=== PATIENT | female | born 1970 ===

== ENCOUNTER 2016-11-25 00:04 | Emergency (ER) | payer MEDICARE, MEDICAID ==
[2016-11-25 00:28] VITALS: BP 95/51; PULSE 88; RESP 18; TEMP 98.1; O2SAT 100
--- NOTE | 2016-11-25 00:50 | ED PDOC ---
HPI: Skin/Bite Injury Time Seen by Provider: 11/25/16 00:09 Chief Complaint (Nursing): Abnormal Skin Integrity Chief Complaint (Provider): Vaccine site irritation History Per: Patient Additional Complaint(s): Pt is a 45 yo female, no PMH, presents to ED with complaints of redness, swelling and pain to her injection site. Pt received T.Dap vaccination 2 days ago. No medications taken to alleviate symptoms thus far. Past Medical History Reviewed: Nursing Documentation, Vital Signs Vital Signs: Last Vital Signs Temp 98.1 F 11/25/16 00:14 Pulse 88 11/25/16 00:14 Resp 18 11/25/16 00:14 BP 95/51 L 11/25/16 00:14 Pulse Ox 100 11/25/16 00:14 - Medical History PMH: Anxiety, Depression, Chronic Pain - Surgical History Surgical History: Cholecystectomy, - Family History Family History: States: Unknown Family Hx - Living Arrangements Living Arrangements: With Family - Social History Current smoker - smoking cessation education provided: No Alcohol: Social Drugs: Denies - Home Medications Home Medications: Ambulatory Orders Medication Instructions Recorded Naproxen [Naprosyn Tab] 1 tab PO Q8 PRN #21 tab 05/29/16 - Allergies Allergies/Adverse Reactions: Allergies Allergy/AdvReac Type Severity Reaction Status Date / Time latex Allergy RASH Verified 05/29/16 23:31 tramadol Allergy RASH Verified 11/25/16 00:14 [facility] Allergy Mild RASH Uncoded 05/29/16 23:31 Review of Systems ROS Statement: Except As Marked, All Systems Reviewed And Found Negative Skin: Positive for: Other (redness and swelling) Physical Exam - Reviewed Nursing Documentation Reviewed: Yes Vital Signs Reviewed: Yes - Physical Exam Appears: Positive for: Well, Non-toxic, No Acute Distress Head Exam: Positive for: ATRAUMATIC, NORMAL INSPECTION, NORMOCEPHALIC Skin: Positive for: Warm ((+) mild erythema, edema and tenderness to injection site ~ 5 cm in diamter.) Eye Exam: Positive for: EOMI, Normal appearance, PERRL ENT: Positive for: Normal ENT Inspection Neck: Positive for: Normal, Painless ROM Cardiovascular/Chest: Positive for: Regular Rate, Rhythm Respiratory: Positive for: CNT, Normal Breath Sounds Gastrointestinal/Abdominal: Positive for: Normal Exam, Bowel Sounds, Soft Back: Positive for: Normal Inspection Extremity: Positive for: Normal ROM Neurologic/Psych: Positive for: Alert, Oriented - ECG O2 Sat by Pulse Oximetry: 100 Medical Decision Making Medical Decision Making: Medicated with Motrin and Keflex PO Line drawn around erythema, advised to return to ED if at anytime condition worsens Disposition - Clinical Impression Clinical Impression: Cellulitis - Patient ED Disposition Is Patient to be Admitted: No - Disposition Referrals: Brandon Buckner MD [Primary Care Provider] - Disposition: Routine/Home Disposition Time: 00:52 Condition: STABLE Forms: [employer] (German) - POA Present On Arrival: None
== END 2016-11-25 01:26 | disposition home or self-care (01) ==
LOC: H.ER 00:04
DX: L03.90 Cellulitis, unspecified (principal); F32.9 Major depressive disorder, single episode, unspecified; F41.9 Anxiety disorder, unspecified; G89.29 Other chronic pain

== ENCOUNTER 2016-12-14 17:39 | Emergency (ER) | payer MEDICARE, MEDICAID ==
[2016-12-14 17:47] VITALS: BP 98/54; PULSE 87; RESP 16; TEMP 98.8; O2SAT 98
--- NOTE | 2016-12-14 18:29 | ED PDOC ---
HPI: General Adult Time Seen by Provider: 12/14/16 17:49 Chief Complaint (Nursing): Back Pain Chief Complaint (Provider): Back pain, b/l leg pain History Per: Patient History/Exam Limitations: no limitations Onset/Duration Of Symptoms: Mins Have you had recent travel within the past 21 days to any of the following countries: [place], [place], [place] or [place]?: No Current Symptoms Are (Timing): Still Present Additional History Per: Patient Additional Complaint(s): The patient is a 46yo female, presents to the ED for evaluation of bilateral leg pain and back pain after slipping and falling prior to arrival. Patient describes the fall as " a split" and states the pain is worse in her inner thighs and her back/. She denies any urine or stool incontinence, numbness or weakness. She offers no additional medical complaints. Past Medical History Reviewed: Historical Data, Nursing Documentation, Vital Signs Vital Signs: Last Vital Signs Temp 98.8 F 12/14/16 17:46 Pulse 87 12/14/16 17:46 Resp 16 12/14/16 17:46 BP 98/54 L 12/14/16 17:46 Pulse Ox 98 12/14/16 18:31 - Medical History PMH: Anxiety, Depression, Chronic Pain - Surgical History Surgical History: Cholecystectomy, - Family History Family History: States: Unknown Family Hx - Home Medications Home Medications: Ambulatory Orders Medication Instructions Recorded Naproxen [Naprosyn Tab] 1 tab PO Q8 PRN #21 tab 05/29/16 Cephalexin [cephalexin] 500 mg PO BID #14 cap 11/25/16 Ibuprofen [Motrin] 600 mg PO Q6 #20 tab 11/25/16 Cyclobenzaprine [Cyclobenzaprine 10 mg PO Q8H PRN #2 tab 12/14/16 HCl] Ibuprofen [Motrin Tab] 800 mg PO ONCE #1 tab 12/14/16 - Allergies Allergies/Adverse Reactions: Allergies Allergy/AdvReac Type Severity Reaction Status Date / Time latex Allergy RASH Verified 12/14/16 17:43 tramadol Allergy RASH Verified 12/14/16 17:43 [facility] Allergy Mild RASH Uncoded 12/14/16 17:43 Review of Systems Genitourinary Female: Negative for: Incontinence Musculoskeletal: Positive for: Back Pain, Leg Pain Neurological: Negative for: Weakness, Numbness Physical Exam - Reviewed Nursing Documentation Reviewed: Yes Vital Signs Reviewed: Yes - Physical Exam Appears: Positive for: Non-toxic, No Acute Distress Head Exam: Positive for: ATRAUMATIC, NORMAL INSPECTION, NORMOCEPHALIC Skin: Positive for: Warm, Dry Neck: Positive for: Supple Cardiovascular/Chest: Positive for: Regular Rate, Rhythm Respiratory: Negative for: Respiratory Distress Back: Positive for: Other (lumbar and paralumbar tenderness) Extremity: Positive for: Normal ROM. Negative for: Deformity, Swelling Neurologic/Psych: Positive for: Alert, Oriented. Negative for: Motor/Sensory Deficits - ECG O2 Sat by Pulse Oximetry: 98 (RA) Pulse Ox Interpretation: Normal Medical Decision Making Medical Decision Making: Time: 1805 Impression: Back and bilateral leg pain after a fall Plan: L-spine x-ray - No acute fracture or dislocation. Reassess Scribe Attestation: Documented by Samira Marcano acting as a scribe for KHLOE Kraft Provider Attestation: All medical record entries made by the Scribe were at my direction and personally dictated by me. I have reviewed the chart and agree that the record accurately reflects my personal performance of the history, physical exam, medical decision making, and the department course for this patient. I have also personally directed, reviewed, and agree with the discharge instructions and disposition. Disposition - Clinical Impression Clinical Impression: Musculoskeletal back pain - Patient ED Disposition Is Patient to be Admitted: No Counseled Patient/Family Regarding: Diagnosis, Need For Followup, Rx Given - Disposition Referrals: [facility] [Outside] Disposition: Routine/Home Disposition Time: 19:41 Condition: GOOD Prescriptions: Cyclobenzaprine [Cyclobenzaprine HCl] 10 mg PO Q8H PRN #2 tab PRN Reason: Muscle Spasm Ibuprofen [Motrin Tab] 800 mg PO ONCE #1 tab Instructions: Acute Low Back Pain (ED) Forms: [employer] (Indonesian)
--- NOTE | 2016-12-15 11:01 | RAD ---
PROCEDURE: Radiographs of the Lumbar Spine. HISTORY: back pain s/p slip and fall COMPARISON: No prior. FINDINGS: BONES: There is normal alignment of the lumbar vertebral bodies. Lumbar lordosis is maintained. Vertebral bodies are normal in height. Bone mineralization is normal. There is no acute fracture, spondylolysis or spondylolisthesis. DISC SPACES: There is mild multilevel degenerative disc disease in the lower lumbar spine with anterior spurring, mild reduced disc heights and multilevel facet arthropathy, worse at L5-S1. OTHER FINDINGS: There are no pathologic soft tissue calcifications. IMPRESSION: No acute fracture, spondylolysis or spondylolisthesis.
== END 2016-12-14 19:59 | disposition home or self-care (01) ==
LOC: H.ER 17:39
DX: M54.9 Dorsalgia, unspecified (principal); W01.0XXA Fall on same level from slipping, tripping and stumbling without subsequent striking against object, initial encounter; Y92.89 Other specified places as the place of occurrence of the external cause; F32.9 Major depressive disorder, single episode, unspecified; F41.9 Anxiety disorder, unspecified; G89.29 Other chronic pain

== ENCOUNTER 2017-04-19 14:23 | Emergency (ER) | payer MEDICARE, MEDICAID ==
[2017-04-19 14:29] VITALS: BP 134/75; PULSE 87; RESP 16; O2SAT 100
--- NOTE | 2017-04-19 16:30 | ED PDOC ---
HPI: CCC, URI, Sore Throat Time Seen by Provider: 04/19/17 16:15 Chief Complaint (Nursing): ENT Problem Chief Complaint (Provider): Flu-like symptoms, left knee pain History Per: Patient History/Exam Limitations: no limitations Onset/Duration Of Symptoms: Days (x4) Current Symptoms Are (Timing): Still Present Additional Complaint(s): Savannah Denise is a 46-year-old female who presents to the Emergency Department complaining of 4 days of body aches, cough, fever, and chills. She has not tried any [id number] medications for symptom relief. Patient also has right knee for "a while" and would like to be evaluated as well. She denies fall or trauma. PMD: None Past Medical History Reviewed: Historical Data, Nursing Documentation, Vital Signs Vital Signs: Last Vital Signs Temp 98.2 F 04/19/17 14:27 Pulse 87 04/19/17 14:27 Resp 16 04/19/17 14:27 BP 134/75 04/19/17 14:27 Pulse Ox 100 04/19/17 18:56 - Medical History PMH: Anxiety, Depression, Chronic Pain - Surgical History Surgical History: Cholecystectomy, Other surgeries: Gastric bypass surgery, Left ankle surgery - Family History Family History: States: No Known Family Hx - Living Arrangements Living Arrangements: With Family - Social History Current smoker - smoking cessation education provided: Yes Alcohol: None Drugs: Denies - Home Medications Home Medications: Ambulatory Orders Medication Instructions Recorded Naproxen [Naprosyn Tab] 1 tab PO Q8 PRN #21 tab 05/29/16 Cephalexin [cephalexin] 500 mg PO BID #14 cap 11/25/16 Ibuprofen [Motrin] 600 mg PO Q6 #20 tab 11/25/16 Cyclobenzaprine [Cyclobenzaprine 10 mg PO Q8H PRN #2 tab 12/14/16 HCl] Ibuprofen [Motrin Tab] 800 mg PO ONCE #1 tab 12/14/16 Albuterol HFA [Ventolin HFA 90 1 puff IH ASDIR #1 unit 04/19/17 mcg/actuation (8 g)] Azithromycin [Zithromax] 250 mg PO DAILY #6 tab 04/19/17 Benzonatate 200 mg PO TID PRN #20 capsule 04/19/17 Naproxen [Naprosyn] 500 mg PO BID #20 tab 04/19/17 - Allergies Allergies/Adverse Reactions: Allergies Allergy/AdvReac Type Severity Reaction Status Date / Time latex Allergy RASH Verified 12/14/16 17:43 tramadol Allergy RASH Verified 12/14/16 17:43 [facility] Allergy Mild RASH Uncoded 12/14/16 17:43 Review of Systems ROS Statement: Except As Marked, All Systems Reviewed And Found Negative Constitutional: Positive for: Fever, Chills, Other (Body aches) ENT: Negative for: Throat Pain Respiratory: Positive for: Cough Gastrointestinal: Negative for: Vomiting, Diarrhea Musculoskeletal: Positive for: Leg Pain (right knee pain) Physical Exam - Reviewed Nursing Documentation Reviewed: Yes Vital Signs Reviewed: Yes - Physical Exam Appears: Positive for: Well, Non-toxic, No Acute Distress Head Exam: Positive for: ATRAUMATIC, NORMAL INSPECTION, NORMOCEPHALIC Skin: Positive for: Normal Color Eye Exam: Positive for: Normal appearance ENT: Positive for: Normal ENT Inspection, TM Is/Are (normal bilaterally). Negative for: Pharyngeal Erythema, Tonsillar Exudate Neck: Positive for: Normal, Painless ROM Cardiovascular/Chest: Positive for: Regular Rate, Rhythm. Negative for: Murmur Respiratory: Positive for: Normal Breath Sounds. Negative for: Accessory Muscle Use, Wheezing, Respiratory Distress Extremity: Positive for: Other (mild tednerness right knee with full rom, no warmth or erythema noted) Neurologic/Psych: Positive for: Alert, Oriented - Laboratory Results Urine POC: Negative - ECG O2 Sat by Pulse Oximetry: 100 (RA) Pulse Ox Interpretation: Normal - Other Rad chest x-ray X-Ray: Viewed By Me, Read By Radiologist X-Ray Interpretation: No active disease. x-ray right knee X-Ray: Viewed By Me, Read By Radiologist X-Ray Interpretation: Medial osteoarthritis. No acute fracture. Medical Decision Making Medical Decision Making: Initial Impression: 46-year-old female with flu-like symptoms Time: 15:12 Plan: Flu swab Urine Chest x-ray X-Ray Right Knee Motrin 600mg PO Negative flu and strep. Patient is aware of x-ray results, all questions answered. Patient feels better after pain meds given. Prescriptions provided for Naprosyn, Zithromax, Tessalon Perles and Ventolin inhaler. Patient was instructed to follow up with primary doctor in 2-3 days. Scribe Attestation: Documented by Jen Youssef, acting as a scribe for Kamilla Rajput PA-C Provider Scribe Attestation: All medical record entries made by the Scribe were at my direction and personally dictated by me. I have reviewed the chart and agree that the record accurately reflects my personal performance of the history, physical exam, medical decision making, and the department course for this patient. I have also personally directed, reviewed, and agree with the discharge instructions and disposition. Procedures - Splinting Location: left knee Pre-Made Type: knee immobilizer Pre-Proc Neuro Vasc Exam: normal Post-Proc Neuro Vasc Exam: normal Disposition - Clinical Impression Clinical Impression: Bronchitis, Arthritis of knee - Patient ED Disposition Is Patient to be Admitted: No Counseled Patient/Family Regarding: Studies Performed, Diagnosis, Need For Followup, Rx Given - Disposition Referrals: [facility] [Outside] Disposition: Routine/Home Disposition Time: 18:54 Condition: STABLE Additional Instructions: Take prescription meds as directed. Follow-up in one to 2 days with primary care doctor. Prescriptions: Albuterol HFA [Ventolin HFA 90 mcg/actuation (8 g)] 1 puff IH ASDIR #1 unit Azithromycin [Zithromax] 250 mg PO DAILY #6 tab Benzonatate 200 mg PO TID PRN #20 capsule PRN Reason: Cough Naproxen [Naprosyn] 500 mg PO BID #20 tab Instructions: Acute Bronchitis (ED), Knee Pain (ED) Forms: [employer] (Slovak)
--- NOTE | 2017-04-19 18:32 | RAD ---
PROCEDURE: Right Knee Radiographs. HISTORY: trauma COMPARISON: None. FINDINGS: BONES: No acute fracture. Probable ununited secondary ossification center adjacent to inferior pole of patella. JOINTS: Narrowing of the medial joint compartment with marginal osteophytes, consistent with osteoarthritis. No articular erosion. Lateral and patellofemoral compartments are grossly preserved. JOINT EFFUSION: None. OTHER FINDINGS: None. IMPRESSION: Medial osteoarthritis. No acute fracture.
--- NOTE | 2017-04-19 18:33 | RAD ---
HISTORY: cough COMPARISON: 02/29/2016 TECHNIQUE: Chest PA and lateral FINDINGS: LUNGS: No active pulmonary disease. PLEURA: No significant pleural effusion identified. No pneumothorax apparent. CARDIOVASCULAR: Normal. OSSEOUS STRUCTURES: No significant abnormalities. VISUALIZED UPPER ABDOMEN: Normal. OTHER FINDINGS: None. IMPRESSION: No active disease.
[2017-04-19 19:08] VITALS: TEMP 98.8
== END 2017-04-19 19:08 | disposition home or self-care (01) ==
LOC: H.ER 14:23
DX: J40 Bronchitis, not specified as acute or chronic (principal); M17.11 Unilateral primary osteoarthritis, right knee; F32.9 Major depressive disorder, single episode, unspecified; F41.9 Anxiety disorder, unspecified; G89.29 Other chronic pain

== ENCOUNTER 2017-05-05 13:06 | Emergency (ER) | payer MEDICARE, MEDICAID ==
[2017-05-05 13:31] VITALS: BP 116/77; PULSE 87; RESP 16; TEMP 97.8; O2SAT 99
--- NOTE | 2017-05-05 14:33 | ED PDOC ---
HPI: General Adult Time Seen by Provider: 05/05/17 13:47 Chief Complaint (Nursing): Upper Extremity Problem/Injury Chief Complaint (Provider): Upper Extremity Problem/Injury History Per: Patient History/Exam Limitations: no limitations Current Symptoms Are (Timing): Still Present Additional Complaint(s): 46 year old female who presents to the emergency department for an evaluation of left middle finger laceration sustained on 03/21/[address] [facility]. Patient stated she removed all 10 stitches on her own on 04/08/17 and treated with injectable antibiotics in follow-up ED visit during [facility]. stay. She also reported 9 months duration of atraumatic right knee pain and bilateral ear pain after swimming this past weekend. Patient denied any fever, chills, headache, cough, shortness of breath, calf tenderness, ear discharge or hearing changes. PMD: none provided Past Medical History Reviewed: Historical Data, Nursing Documentation, Vital Signs Vital Signs: Last Vital Signs Temp 97.8 F 05/05/17 13:28 Pulse 87 05/05/17 13:28 Resp 16 05/05/17 13:28 BP 116/77 05/05/17 13:28 Pulse Ox 99 05/05/17 15:44 - Medical History PMH: Anxiety, Depression, Chronic Pain - Surgical History Surgical History: Cholecystectomy, - Family History Family History: States: Unknown Family Hx - Social History Current smoker - smoking cessation education provided: No Alcohol: None Drugs: Denies - Home Medications Home Medications: Ambulatory Orders Medication Instructions Recorded Naproxen [Naprosyn Tab] 1 tab PO Q8 PRN #21 tab 05/29/16 Cephalexin [cephalexin] 500 mg PO BID #14 cap 11/25/16 Ibuprofen [Motrin] 600 mg PO Q6 #20 tab 11/25/16 Cyclobenzaprine [Cyclobenzaprine 10 mg PO Q8H PRN #2 tab 12/14/16 HCl] Ibuprofen [Motrin Tab] 800 mg PO ONCE #1 tab 12/14/16 Albuterol HFA [Ventolin HFA 90 1 puff IH ASDIR #1 unit 04/19/17 mcg/actuation (8 g)] Azithromycin [Zithromax] 250 mg PO DAILY #6 tab 04/19/17 Benzonatate 200 mg PO TID PRN #20 capsule 04/19/17 Naproxen [Naprosyn] 500 mg PO BID #20 tab 04/19/17 Amoxicillin [Amoxil 500 mg Cap] 500 mg PO TID #30 cap 05/05/17 Meloxicam [Mobic] 7.5 mg PO DAILY PRN #14 tab 05/05/17 Ofloxacin Otic 0.3% [Floxin 0.3% 10 drop DAILY #1 bottle 05/05/17 Otic Soln] - Allergies Allergies/Adverse Reactions: Allergies Allergy/AdvReac Type Severity Reaction Status Date / Time latex Allergy RASH Verified 12/14/16 17:43 tramadol Allergy RASH Verified 12/14/16 17:43 [facility] Allergy Mild RASH Uncoded 12/14/16 17:43 Review of Systems ROS Statement: Except As Marked, All Systems Reviewed And Found Negative Constitutional: Negative for: Fever, Chills ENT: Positive for: Ear Pain (bilateral). Negative for: Ear Discharge, Other ( hearing changes) Respiratory: Negative for: Cough, Shortness of Breath Musculoskeletal: Positive for: Hand Pain (left middle finger laceration), Leg Pain (atraumatic right knee pain). Negative for: Other (bialteral calf pain) Neurological: Negative for: Headache Physical Exam - Reviewed Nursing Documentation Reviewed: Yes Vital Signs Reviewed: Yes - Physical Exam Appears: Positive for: Non-toxic, No Acute Distress Eye Exam: Positive for: Normal appearance, EOMI, PERRL. Negative for: Nystagmus , Periorbital swelling, Periorbital tenderness ENT: Positive for: TM Is/Are (within normal limits to left TM and right ear canal), Other (Right erythematous and bulging TM; left erythematous and mild edematous ear canal) Respiratory: Positive for: Normal Breath Sounds. Negative for: Decreased Breath Sounds, Respiratory Distress Pulses-Post. Tibialis (R): 2+ Pulses-Radial (L): 2+ Extremity: Positive for: Tenderness (medial surface of right knee with active ROM), Swelling (minimally to right knee on medial surface), Other (healing suture wound with edema noted to left 3rd upper digit and limited ROM secondary to pain). Negative for: Normal ROM, Deformity (erythema or fluctuance to left 3rd upper digit) Neurologic/Psych: Positive for: Alert, Oriented - ECG O2 Sat by Pulse Oximetry: 99 (RA) Pulse Ox Interpretation: Normal Medical Decision Making Medical Decision Making: Initial Impression: Knee pain; Ear pain; Finger laceration Initial Plan: * Xray knee (right) * Xray hand (left) ____ Time: 1422 --Case discussed with Marcos Anthony APN. --Requested Dr. May for surgery consult. ___ Time: 1528 --Xray knee (right) FINDINGS: BONES: No acute fracture. Well corticated ossific density at the lower pole of patella redemonstrated. JOINTS: Tricompartmental narrowing with mild degenerative spurring. JOINT EFFUSION: None. OTHER FINDINGS: None. IMPRESSION: No demonstrated fracture or dislocation. Degenerative changes. --Xray hand (left) FINDINGS: LEFT MIDDLE FINGER: Left middle finger normal, without fracture of focal lesion. Remainder of the left hand (as seen on the AP view) is grossly unremarkable. JOINTS: Normal. SOFT TISSUES: Normal. OTHER FINDINGS: None. IMPRESSION: Normal left middle finger radiographs. Scribe Attestation: Documented by Marianna Vela, acting as a scribe for Yaniv Watters PA-C. Provider Scribe Attestation: All medical record entries made by the Scribe were at my direction and personally dictated by me. I have reviewed the chart and agree that the record accurately reflects my personal performance of the history, physical exam, medical decision making, and the department course for this patient. I have also personally directed, reviewed, and agree with the discharge instructions and disposition. Disposition - Clinical Impression Clinical Impression: Otitis media, Otitis externa, Right knee pain, Finger pain - Patient ED Disposition Is Patient to be Admitted: No - Disposition Referrals: Lexy Cheney MD [Staff Provider] - Disposition: Routine/Home Disposition Time: 15:30 Condition: STABLE Prescriptions: Amoxicillin [Amoxil 500 mg Cap] 500 mg PO TID #30 cap Meloxicam [Mobic] 7.5 mg PO DAILY PRN #14 tab PRN Reason: Pain, Mild (1-3) Ofloxacin Otic 0.3% [Floxin 0.3% Otic Soln] 10 drop DAILY #1 bottle Instructions: Otitis Externa (ED), Otitis Media (ED), Knee Pain (ED), Arthralgia (ED) Forms: [employer] (Faroese) Print Language: MAORI
[2017-05-05] MEDS ORDERED: Naproxen 500 MG TAB PO ONE (15:15)
--- NOTE | 2017-05-05 15:33 | RAD ---
PROCEDURE: Left middle finger radiographs. HISTORY: trauma COMPARISON: None. TECHNIQUE: AP radiograph of the left hand, as well as spot oblique and lateral images of left middle finger were obtained. FINDINGS: LEFT MIDDLE FINGER: Left middle finger normal, without fracture of focal lesion. Remainder of the left hand (as seen on the AP view) is grossly unremarkable. JOINTS: Normal. SOFT TISSUES: Normal. OTHER FINDINGS: None. IMPRESSION: Normal left middle finger radiographs.
--- NOTE | 2017-05-05 15:34 | RAD ---
PROCEDURE: Right Knee Radiographs. HISTORY: pain COMPARISON: Right knee radiographs dated 04/19/2017. FINDINGS: BONES: No acute fracture. Well corticated ossific density at the lower pole of patella redemonstrated. JOINTS: Tricompartmental narrowing with mild degenerative spurring. JOINT EFFUSION: None. OTHER FINDINGS: None. IMPRESSION: No demonstrated fracture or dislocation. Degenerative changes.
== END 2017-05-05 16:07 | disposition home or self-care (01) ==
LOC: H.ER 13:06
DX: S61.213A Laceration without foreign body of left middle finger without damage to nail, initial encounter (principal); W26.8XXA Contact with other sharp object(s), not elsewhere classified, initial encounter; Y92.89 Other specified places as the place of occurrence of the external cause; M25.561 Pain in right knee; F32.9 Major depressive disorder, single episode, unspecified; F41.9 Anxiety disorder, unspecified; G89.29 Other chronic pain

== ENCOUNTER 2017-09-20 23:39 | Emergency (ER) | payer MEDICARE, MEDICAID ==
[2017-09-20 23:56] VITALS: BP 119/71; PULSE 81; RESP 17; TEMP 99; O2SAT 98
[2017-09-21 00:44] LABS: HEMOGLOBIN 8.7 g/dL (12.0-16.0); MEAN CELL VOLUME 66.7 fl (81.0-99.0); MEAN CORPUSCULAR HEMOGLOBIN 20.8 pg (27.0-31.0); MEAN CORPUSCULAR HGB CONC 31.1 g/dL (33.0-37.0); RBC 4.2 Mil/uL (3.80-5.20); RED CELL DISTRIBUTION WIDTH 21.9 % (11.5-14.5); WHITE BLOOD COUNT 10.4 K/uL (4.8-10.8)
[2017-09-21 00:52] LABS: BLOOD UREA NITROGEN 13 mg/dl (7-17); CALCIUM 8.5 mg/dL (8.4-10.2); GFR AFRICAN-AMERICAN > 60; GFR NON-AFRICAN AMERICAN > 60
--- NOTE | 2017-09-21 01:08 | ED PDOC ---
HPI: Chest Pain Time Seen by Provider: 09/20/17 23:52 Chief Complaint (Nursing): Chest Pain Chief Complaint (Provider): Chest Pain History Per: Patient History/Exam Limitations: no limitations Onset/Duration Of Symptoms: Mins (prior to arrival) Current Symptoms Are (Timing): Better Additional Complaint(s): 46 year old female with history of chronic back pain, anxiety, and depression presents with resolved palpitations via EMS. Patient states she woke up feeling very nervous and felt her heart pounding, so she took .5 mg of Xanax, which relieved her symptoms. Currently, she denies palpitations, chest pain, shortness of breath, or sweats. PMD: none provided Past Medical History Reviewed: Historical Data, Nursing Documentation, Vital Signs Vital Signs: Last Vital Signs Temp 99.0 F 09/20/17 23:46 Pulse 81 09/20/17 23:46 Resp 17 09/20/17 23:46 BP 119/71 09/20/17 23:46 Pulse Ox 98 09/21/17 01:13 - Medical History PMH: Anxiety, Depression, Chronic Pain - Surgical History Surgical History: Cholecystectomy, - Family History Family History: States: Unknown Family Hx - Social History Current smoker - smoking cessation education provided: Yes Alcohol: None Drugs: Denies - Home Medications Home Medications: Ambulatory Orders Medication Instructions Recorded Naproxen [Naprosyn Tab] 1 tab PO Q8 PRN #21 tab 05/29/16 Cephalexin [cephalexin] 500 mg PO BID #14 cap 11/25/16 Ibuprofen [Motrin] 600 mg PO Q6 #20 tab 11/25/16 Cyclobenzaprine [Cyclobenzaprine 10 mg PO Q8H PRN #2 tab 12/14/16 HCl] Ibuprofen [Motrin Tab] 800 mg PO ONCE #1 tab 12/14/16 Albuterol HFA [Ventolin HFA 90 1 puff IH ASDIR #1 unit 04/19/17 mcg/actuation (8 g)] Azithromycin [Zithromax] 250 mg PO DAILY #6 tab 04/19/17 Benzonatate 200 mg PO TID PRN #20 capsule 04/19/17 Naproxen [Naprosyn] 500 mg PO BID #20 tab 04/19/17 Amoxicillin [Amoxil 500 mg Cap] 500 mg PO TID #30 cap 05/05/17 Meloxicam [Mobic] 7.5 mg PO DAILY PRN #14 tab 05/05/17 Ofloxacin Otic 0.3% [Floxin 0.3% 10 drop DAILY #1 bottle 05/05/17 Otic Soln] - Allergies Allergies/Adverse Reactions: Allergies Allergy/AdvReac Type Severity Reaction Status Date / Time latex Allergy RASH Verified 12/14/16 17:43 tramadol Allergy RASH Verified 12/14/16 17:43 YUCA Allergy Mild RASH Uncoded 12/14/16 17:43 Review of Systems ROS Statement: Except As Marked, All Systems Reviewed And Found Negative Constitutional: Negative for: Sweats Cardiovascular: Positive for: Palpitations (but resolved now). Negative for: Chest Pain Respiratory: Negative for: Shortness of Breath Psych: Positive for: Anxiety Physical Exam - Reviewed Nursing Documentation Reviewed: Yes Vital Signs Reviewed: Yes - Physical Exam Appears: Positive for: Well, Non-toxic, No Acute Distress Head Exam: Positive for: ATRAUMATIC, NORMOCEPHALIC Skin: Positive for: Normal Color, Warm, Dry Eye Exam: Positive for: Normal appearance, EOMI, PERRL ENT: Positive for: Normal ENT Inspection Neck: Positive for: Normal, Painless ROM, Supple Cardiovascular/Chest: Positive for: Regular Rate, Rhythm. Negative for: Murmur Respiratory: Positive for: Normal Breath Sounds. Negative for: Accessory Muscle Use, Respiratory Distress Gastrointestinal/Abdominal: Positive for: Normal Exam, Soft. Negative for: Tenderness Back: Positive for: Normal Inspection. Negative for: L CVA Tenderness, R CVA Tenderness, Vertebral Tenderness Extremity: Positive for: Normal ROM. Negative for: Pedal Edema, Calf Tenderness Neurologic/Psych: Positive for: Alert, Oriented (x3). Negative for: Motor/ Sensory Deficits - Laboratory Results Result Diagrams: 09/21/17 00:32 09/21/17 00:32 - ECG O2 Sat by Pulse Oximetry: 98 (RA) Pulse Ox Interpretation: Normal Medical Decision Making Medical Decision Making: A/P Patient with history of anxiety and depression presenting with resolved palpitations -currently well appearing with normal vital signs and normal EKG -relates multiple social stressors recently to her anxiety -will get one troponin to risk stratify patient, and if normal, will d/c to follow up with PMD Scribe Attestation: Documented by Екатерина Dominguez, acting as a scribe for Alo Ortega MD. Provider Scribe Attestation: All medical entries made by the Scribe were at my direction and personally dictated by me. I have reviewed the chart and agree that the record accurately reflects my personal performance of the history, physical exam, medical decision making, and the department course for this patient. I have also personally directed, reviewed, and agree with the discharge instructions and disposition. Disposition - Clinical Impression Clinical Impression: Palpitations - Disposition Referrals: Christiano Velasquez MD [Medical Doctor] - Disposition Time: 01:30 Condition: STABLE Instructions: Palpitations Forms: [employer] (Swedish)
== END 2017-09-21 01:54 | disposition home or self-care (01) ==
LOC: H.ER 23:39
DX: R00.2 Palpitations (principal); F32.9 Major depressive disorder, single episode, unspecified; F41.9 Anxiety disorder, unspecified; G89.29 Other chronic pain; F17.200 Nicotine dependence, unspecified, uncomplicated

== ENCOUNTER 2017-10-13 00:19 | Emergency (ER) | payer MEDICAID, MEDICARE ==
[2017-10-13 02:09] LABS: BASO # 0.1 K/uL (0.0-0.2); BASO % 0.9 % (0.0-2.0); EOS # 0.2 K/uL (0.0-0.7); HEMOGLOBIN 8.4 g/dL (12.0-16.0); LYMPH # 4.1 K/uL (1.0-4.3); LYMPH % 35.6 % (20.0-40.0); MEAN CELL VOLUME 67.3 fl (81.0-99.0); MEAN CORPUSCULAR HEMOGLOBIN 20.1 pg (27.0-31.0); MEAN CORPUSCULAR HGB CONC 29.9 g/dL (33.0-37.0); MEAN PLATELET VOLUME 7.4 fl (7.2-11.7); MONO # 0.5 K/uL (0.0-0.8); MONO % 4.5 % (0.0-10.0); NEUT # 6.5 K/uL (1.8-7.0); RBC 4.18 Mil/uL (3.80-5.20); RED CELL DISTRIBUTION WIDTH 22.4 % (11.5-14.5); WHITE BLOOD COUNT 11.4 K/uL (4.8-10.8)
[2017-10-13 02:16] LABS: ALBUMIN 3.6 g/dL (3.5-5.0); ALT/SGPT 26 U/L (9-52); AST/SGOT 25 U/L (14-36); BLOOD UREA NITROGEN 13 mg/dl (7-17); CALCIUM 8.8 mg/dL (8.4-10.2); GFR AFRICAN-AMERICAN > 60; GFR NON-AFRICAN AMERICAN > 60
[2017-10-13 02:23] LABS: PARTIAL THROMBOPLASTIN TIME 27.7 Seconds (25.6-37.1); PROTHROMBIN TIME 10.7 Seconds (9.8-13.1)
--- NOTE | 2017-10-13 02:49 | ED PDOC ---
Lower Extremity Pain/Injury Chief Complaint (Provider): Right LE Problem History Per: Patient History/Exam Limitations: no limitations Onset/Duration Of Symptoms: Days (x1) Current Symptoms Are (Timing): Still Present Additional Complaint(s): 46 year old female presents to the ED for evaluation of right leg pain. Patient states she woke up yesterday morning and noticed a lump to her right calf, which throughout the days became increasingly painful, especially when walking, but did not take any medications prior to arrival. She notes the area feels hot , and is tender to touch. Otherwise, (-) trauma, (-) falls, (-) recent insect bites, (-) cough, (-) shortness of breath, (-) chest pain, (-) control use , (-) prolonged immobility, (-) fever, (-) chills. LNMP: 10/07/17 PMD: Dr. Sandoval <Maureen Ramirez - Last Filed: 10/13/17 05:46> <Alo Ortega - Last Filed: 10/13/17 06:26> Time Seen by Provider: 10/13/17 00:49 Chief Complaint (Nursing): Lower Extremity Problem/Injury Past Medical History Reviewed: Historical Data, Nursing Documentation, Vital Signs Vital Signs: Last Vital Signs Temp 97.8 F 10/13/17 00:33 Pulse 87 10/13/17 00:33 Resp 17 10/13/17 00:33 BP 130/75 10/13/17 00:33 Pulse Ox 99 10/13/17 00:33 - Medical History PMH: Anxiety, Depression, Chronic Pain - Surgical History Surgical History: Cholecystectomy, - Family History Family History: States: Unknown Family Hx - Social History Current smoker - smoking cessation education provided: Yes (light) Alcohol: None Drugs: Denies <Maureen Ramirez - Last Filed: 10/13/17 05:46> Vital Signs: Last Vital Signs Temp 97.8 F 10/13/17 00:33 Pulse 87 10/13/17 00:33 Resp 17 10/13/17 00:33 BP 130/75 10/13/17 00:33 Pulse Ox 99 10/13/17 05:49 <Alo Ortega - Last Filed: 10/13/17 06:26> - Home Medications Home Medications: Ambulatory Orders Medication Instructions Recorded Naproxen [Naprosyn Tab] 1 tab PO Q8 PRN #21 tab 05/29/16 Cephalexin [cephalexin] 500 mg PO BID #14 cap 11/25/16 Ibuprofen [Motrin] 600 mg PO Q6 #20 tab 11/25/16 Cyclobenzaprine [Cyclobenzaprine 10 mg PO Q8H PRN #2 tab 12/14/16 HCl] Ibuprofen [Motrin Tab] 800 mg PO ONCE #1 tab 12/14/16 Albuterol HFA [Ventolin HFA 90 1 puff IH ASDIR #1 unit 04/19/17 mcg/actuation (8 g)] Azithromycin [Zithromax] 250 mg PO DAILY #6 tab 04/19/17 Benzonatate 200 mg PO TID PRN #20 capsule 04/19/17 Naproxen [Naprosyn] 500 mg PO BID #20 tab 04/19/17 Amoxicillin [Amoxil 500 mg Cap] 500 mg PO TID #30 cap 05/05/17 Meloxicam [Mobic] 7.5 mg PO DAILY PRN #14 tab 05/05/17 Ofloxacin Otic 0.3% [Floxin 0.3% 10 drop DAILY #1 bottle 05/05/17 Otic Soln] - Allergies Allergies/Adverse Reactions: Allergies Allergy/AdvReac Type Severity Reaction Status Date / Time latex Allergy RASH Verified 12/14/16 17:43 tramadol Allergy RASH Verified 12/14/16 17:43 YUCA Allergy Mild RASH Uncoded 12/14/16 17:43 Review of Systems ROS Statement: Except As Marked, All Systems Reviewed And Found Negative Constitutional: Negative for: Fever, Chills, Other (trauma / falls) Cardiovascular: Negative for: Chest Pain Respiratory: Negative for: Cough, Shortness of Breath Musculoskeletal: Positive for: Other (painful, hot lump to right calf) <Maureen Ramirez - Last Filed: 10/13/17 05:46> Physical Exam - Reviewed Nursing Documentation Reviewed: Yes Vital Signs Reviewed: Yes - Physical Exam Comments: GENERAL APPEARANCE: Patient is awake, alert, oriented x 3, in no acute distress. Resting comfortably. SKIN: Warm, dry; (-) cyanosis. RIGHT LOWER EXTREMITY: (+) 3cm x 3cm area of warmth, faint erythema, and tenderness to mid posterior medial right calf. Sensation intact. Distal pulses present. Remainder of LE: full ROM, (-) tenderness. HEART AND CARDIOVASCULAR: (-) irregularity; (-) murmur, (-) gallop. CHEST AND RESPIRATORY: (-) rales, (-) rhonchi, (-) wheezes; breath sounds equal. NEURO AND PSYCH: Mental status as above. <Maureen Ramirez - Last Filed: 10/13/17 05:46> - Laboratory Results Result Diagrams: 10/13/17 02:05 10/13/17 02:05 Urine POC: Negative - ECG O2 Sat by Pulse Oximetry: 99 (RA) Pulse Ox Interpretation: Normal <Maureen Ramirez - Last Filed: 10/13/17 05:46> - Laboratory Results Result Diagrams: 10/13/17 02:05 10/13/17 02:05 <Alo Ortega - Last Filed: 10/13/17 06:26> Medical Decision Making Medical Decision Making: Time: 01:40 Initial Impression: calf pain, consider cellulitis vs DVT Initial Plan: --CMP -- test --CBC with differential --D Dimer --PT/ PTT --Toradol 30 mg IVP 0255 Labs reviewed, D-dimer elevated at 638. U/S lower extremity ordered for further evaluation of possible DVT. Patient agreeable to stay in ED until 7am when ultrasound is available. 0500 Patient resting comfortably. No additional complaints at present. 0600 Continuation of care per Dr Ortega. Patient pending U/S evaluation. Scribe Attestation: Documented by Екатерина Dominguez, acting as a scribe for Maureen Ramirez PA-C. Provider Scribe Attestation: All medical record entries made by the Scribe were at my direction and personally dictated by me. I have reviewed the chart and agree that the record accurately reflects my personal performance of the history, physical exam, medical decision making, and the department course for this patient. I have also personally directed, reviewed, and agree with the discharge instructions and disposition. <Helena Ramirezbechina Haynes - Last Filed: 10/13/17 05:46> Medical Decision Makin Patient endorsed to Dr. Reardon pending U/S <Alo Ortega - Last Filed: 10/13/17 06:26> Disposition <Maureen Ramirez Ivy - Last Filed: 10/13/17 05:46> - Patient ED Disposition Is Patient to be Admitted: No - Disposition Disposition: Transfer of Care Disposition Time: 07:00 Patient Signed Over To: Ramya Reardon Handoff Comments: pending ultrasound <Alo Ortega - Last Filed: 10/13/17 06:26> - Clinical Impression Clinical Impression: Leg pain - Disposition Condition: STABLE Forms: [employer] (Libyan) Results - Lab Results Lab Results: 10/13/17 10/13/17 10/13/17 02:05 02:05 02:05 WBC 11.4 H RBC 4.18 Hgb 8.4 L Hct 28.1 L MCV 67.3 L MCH 20.1 L MCHC 29.9 L RDW 22.4 H Plt Count 445 H MPV 7.4 Neut % (Auto) 57.0 Lymph % (Auto) 35.6 [place] % (Auto) 4.5 Eos % (Auto) 2.0 Baso % (Auto) 0.9 Neut # (Auto) 6.5 Lymph # (Auto) 4.1 [place] # (Auto) 0.5 Eos # (Auto) 0.2 Baso # (Auto) 0.1 PT 10.7 INR 1.0 APTT 27.7 D-Dimer, Quantitative 638 H Sodium 140 Potassium 3.5 L Chloride 107 Carbon Dioxide 24 Anion Gap 13 BUN 13 Creatinine 0.7 Est GFR ( Amer) > 60 Est GFR (Non-Af Amer) > 60 Random Glucose 117 H Calcium 8.8 Total Bilirubin 0.3 AST 25 ALT 26 Alkaline Phosphatase 105 Total Protein 7.2 Albumin 3.6 Globulin 3.6 Albumin/Globulin Ratio 1.0 <Maureen Ramirez - Last Filed: 10/13/17 05:46> - Lab Results Lab Results: 10/13/17 10/13/17 10/13/17 02:05 02:05 02:05 WBC 11.4 H RBC 4.18 Hgb 8.4 L Hct 28.1 L MCV 67.3 L MCH 20.1 L MCHC 29.9 L RDW 22.4 H Plt Count 445 H MPV 7.4 Neut % (Auto) 57.0 Lymph % (Auto) 35.6 [place] % (Auto) 4.5 Eos % (Auto) 2.0 Baso % (Auto) 0.9 Neut # (Auto) 6.5 Lymph # (Auto) 4.1 [place] # (Auto) 0.5 Eos # (Auto) 0.2 Baso # (Auto) 0.1 PT 10.7 INR 1.0 APTT 27.7 D-Dimer, Quantitative 638 H Sodium 140 Potassium 3.5 L Chloride 107 Carbon Dioxide 24 Anion Gap 13 BUN 13 Creatinine 0.7 Est GFR ( Amer) > 60 Est GFR (Non-Af Amer) > 60 Random Glucose 117 H Calcium 8.8 Total Bilirubin 0.3 AST 25 ALT 26 Alkaline Phosphatase 105 Total Protein 7.2 Albumin 3.6 Globulin 3.6 Albumin/Globulin Ratio 1.0 <Alo Ortega - Last Filed: 10/13/17 06:26>
--- NOTE | 2017-10-13 07:19 | ED PDOC ---
- Laboratory Results Result Diagrams: 10/13/17 02:05 10/13/17 02:05 Urine POC: Negative - ECG O2 Sat by Pulse Oximetry: 97 Medical Decision Making Medical Decision Making: patient endorsed to me by Dr. Ortega. She is pending doppler of the LE for elevated d-dimer. preliminary US is negative for DVT. Will discharge Disposition Doctor Will See Patient In The: Office Counseled Patient/Family Regarding: Diagnosis, Need For Followup - Clinical Impression Clinical Impression: Leg pain - POA Present On Arrival: None - Disposition Disposition: Routine/Home Disposition Time: 09:03 Condition: STABLE Forms: [employer] (Amharic)
[2017-10-13 07:44] VITALS: TEMP 97.7
--- NOTE | 2017-10-13 09:01 | US ---
Date of service: 10/13/2017 PROCEDURE: Right lower extremity venous duplex Doppler. HISTORY: calf pain, elevated d-dimer COMPARISON: None available. TECHNIQUE: Common femoral, superficial femoral, popliteal and posterior tibial veins were evaluated. Flow was assessed with color Doppler, compressibility, assessment of phasic flow and augmentation response. FINDINGS: COMMON FEMORAL VEIN: Normal direction of flow, compressibility and augmentation response. SUPERFICIAL FEMORAL VEIN: Normal direction of flow, compressibility and augmentation response. POPLITEAL VEIN: Normal direction of flow, compressibility and augmentation response. POSTERIOR TIBIAL VEIN: Normal direction of flow, compressibility and augmentation response. OTHER FINDINGS: None. IMPRESSION: No evidence of deep venous thrombosis in the right lower extremity.
[2017-10-13 09:12] VITALS: BP 101/69; PULSE 81; RESP 16; O2SAT 95
== END 2017-10-13 09:15 | disposition home or self-care (01) ==
LOC: H.ER 00:19
DX: M79.604 Pain in right leg (principal); G89.29 Other chronic pain
CPT/HCPCS: 80053; 81025; 85025; 85378; 85610; 85730; 93971; 96374; 99285; J1885

== ENCOUNTER 2017-11-01 22:24 | Emergency (ER) | payer MEDICAID, MEDICARE ==
[2017-11-01 22:37] VITALS: O2SAT 100
--- NOTE | 2017-11-01 23:43 | ED PDOC ---
HPI: CCC, URI, Sore Throat Time Seen by Provider: 11/01/17 22:48 Chief Complaint (Nursing): Chest Pain Chief Complaint (Provider): Congestion History Per: Patient History/Exam Limitations: no limitations Onset/Duration Of Symptoms: Days Current Symptoms Are (Timing): Still Present Location Of Pain: Ear(s), Throat Associated Symptoms: Fever, Sore Throat, Cough Additional Complaint(s): Savannah Denise is a 46 year old female with a past medical history of anxiety, depression, and back pain who is presenting to the ED for evaluation of left ear pain associated with runny nose, sore throat, cough and subjective fever onset a few days ago. Patient states that symptoms started after she was caught in the rain and reports yellow discharge from left ear. She states that she has not taken any medications for symptoms and denies any vomiting, diarrhea, chest pain or shortness of breath. PMD: Dr Maldonado Past Medical History Reviewed: Historical Data, Nursing Documentation, Vital Signs Vital Signs: Last Vital Signs Temp 98.1 F 11/02/17 00:02 Pulse 90 11/02/17 00:02 Resp 18 11/02/17 00:02 BP 106/76 11/02/17 00:02 Pulse Ox 100 11/02/17 00:02 - Medical History PMH: Anxiety, Back Problems, Depression, Chronic Pain - Surgical History Surgical History: Cholecystectomy, - Family History Family History: States: Unknown Family Hx - Social History Current smoker - smoking cessation education provided: Yes Alcohol: None Drugs: Denies - Home Medications Home Medications: Ambulatory Orders Medication Instructions Recorded Naproxen [Naprosyn Tab] 1 tab PO Q8 PRN #21 tab 05/29/16 Cephalexin [cephalexin] 500 mg PO BID #14 cap 11/25/16 Ibuprofen [Motrin] 600 mg PO Q6 #20 tab 11/25/16 Cyclobenzaprine [Cyclobenzaprine 10 mg PO Q8H PRN #2 tab 12/14/16 HCl] Ibuprofen [Motrin Tab] 800 mg PO ONCE #1 tab 12/14/16 Albuterol HFA [Ventolin HFA 90 1 puff IH ASDIR #1 unit 04/19/17 mcg/actuation (8 g)] Azithromycin [Zithromax] 250 mg PO DAILY #6 tab 04/19/17 Benzonatate 200 mg PO TID PRN #20 capsule 04/19/17 Naproxen [Naprosyn] 500 mg PO BID #20 tab 04/19/17 Amoxicillin [Amoxil 500 mg Cap] 500 mg PO TID #30 cap 05/05/17 Meloxicam [Mobic] 7.5 mg PO DAILY PRN #14 tab 05/05/17 Ofloxacin Otic 0.3% [Floxin 0.3% 10 drop DAILY #1 bottle 05/05/17 Otic Soln] Ciprofloxacin/Hydrocortisone 3 drop OS BID 7 Days #1 drops.susp 11/01/17 [Cipro Hc Otic Suspension] Loratadine [Claritin] 10 mg PO DAILY PRN #10 tab 11/01/17 - Allergies Allergies/Adverse Reactions: Allergies Allergy/AdvReac Type Severity Reaction Status Date / Time latex Allergy RASH Verified 12/14/16 17:43 tramadol Allergy RASH Verified 12/14/16 17:43 YUCA Allergy Mild RASH Uncoded 12/14/16 17:43 Review of Systems ROS Statement: Except As Marked, All Systems Reviewed And Found Negative Constitutional: Positive for: Fever ENT: Positive for: Ear Pain, Nose Congestion, Throat Pain Cardiovascular: Negative for: Chest Pain Respiratory: Positive for: Cough. Negative for: Shortness of Breath Gastrointestinal: Negative for: Nausea, Vomiting, Diarrhea Physical Exam - Reviewed Nursing Documentation Reviewed: Yes Vital Signs Reviewed: Yes - Physical Exam Appears: Positive for: Well, Non-toxic, No Acute Distress Head Exam: Positive for: ATRAUMATIC, NORMAL INSPECTION, NORMOCEPHALIC Skin: Positive for: Normal Color, Warm, DRY Eye Exam: Positive for: EOMI, Normal appearance, PERRL ENT: Positive for: Normal ENT Inspection, TM Is/Are (WNL) Neck: Positive for: Normal, Painless ROM Cardiovascular/Chest: Positive for: Regular Rate, Rhythm. Negative for: Murmur Respiratory: Positive for: Normal Breath Sounds. Negative for: Respiratory Distress Gastrointestinal/Abdominal: Positive for: Normal Exam, Soft. Negative for: Tenderness Back: Positive for: Normal Inspection. Negative for: L CVA Tenderness, R CVA Tenderness, Vertebral Tenderness Extremity: Positive for: Normal ROM. Negative for: Deformity, Swelling Neurologic/Psych: Positive for: Alert, Oriented. Negative for: Motor/Sensory Deficits - ECG ECG Rhythm: Positive for: Normal QRS, Normal ST Segment, Sinus Rhythm Rate: 98 O2 Sat by Pulse Oximetry: 100 (RA) Pulse Ox Interpretation: Normal Medical Decision Making Medical Decision Making: Time: 23:23 Impression: Upper Respiratory Infection Plan: --EKG --ED Urine --Chest X-Ray Chest X-ray was read by provider and showed no active disease or clinically significant abnormalities. Scribe Attestation: Documented by Lorena Rios, acting as a scribe for Katie Brenner MD. Provider Scribe Attestation: All medical record entries made by the Scribe were at my direction and personally dictated by me. I have reviewed the chart and agree that the record accurately reflects my personal performance of the history, physical exam, medical decision making, and the department course for this patient. I have also personally directed, reviewed, and agree with the discharge instructions and disposition. Disposition - Clinical Impression Clinical Impression: URI (upper respiratory infection), Otitis externa - Disposition Disposition: Routine/Home Disposition Time: 23:47 Condition: GOOD Additional Instructions: FOLLOW-UP WITH PMD WITHIN 2 DAYS FOR REEVALUATION. Prescriptions: Ciprofloxacin/Hydrocortisone [Cipro Hc Otic Suspension] 3 drop OS BID 7 Days #1 drops.susp Loratadine [Claritin] 10 mg PO DAILY PRN #10 tab PRN Reason: Allergy Symptoms Instructions: Outer Ear Infection, Viral Upper Respiratory Infection, Adult (DC ) Forms: [employer] (Icelandic)
[2017-11-02 00:15] VITALS: BP 106/76; RESP 18; TEMP 98.1
--- NOTE | 2017-11-02 09:20 | RAD ---
HISTORY: COMPARISON: 04/19/2017. TECHNIQUE: Chest PA and lateral FINDINGS: LINES AND TUBES: None. LUNG AND PLEURA: The lungs are well inflated and clear. No pleural effusion or pneumothorax. HEART AND MEDIASTINUM: The heart is not enlarged. The hilar and mediastinal contours are within normal limits. SKELETAL STRUCTURES: The bony structures are within normal limits for the patient's age. VISUALIZED UPPER ABDOMEN: Normal. OTHER FINDINGS: None. IMPRESSION: No active pulmonary disease.
[2017-11-04 12:57] VITALS: PULSE 98
== END 2017-11-02 00:06 | disposition home or self-care (01) ==
LOC: H.ER 22:24
DX: J06.9 Acute upper respiratory infection, unspecified (principal); H60.90 Unspecified otitis externa, unspecified ear; F17.210 Nicotine dependence, cigarettes, uncomplicated

== ENCOUNTER 2018-01-12 03:43 | Emergency (ER) | payer MEDICARE ==
[2018-01-12 03:53] VITALS: O2SAT 98
--- NOTE | 2018-01-12 03:56 | ED PDOC ---
HPI: General Adult Time Seen by Provider: 01/12/18 03:54 Chief Complaint (Nursing): Back Pain Chief Complaint (Provider): tooth ache, knee pain, back pain History Per: Patient Additional Complaint(s): 47-year-old female presents with dental pain ongoing for about 4 days. Patient has been taking Tylenol No. 4 which has not helped the pain. She is able to tolerate liquids and solids. Patient also states her chronic neck, back and knee pain are acting up. Patient is under the care of lead based paint technician Dr. Velasquez and only takes Tylenol No. 4 for pain daily. Past Medical History Reviewed: Historical Data, Nursing Documentation, Vital Signs Vital Signs: Last Vital Signs Temp 98.1 F 01/12/18 03:50 Pulse 95 H 01/12/18 03:50 Resp 16 01/12/18 03:50 BP 119/72 01/12/18 03:50 Pulse Ox 98 01/12/18 03:50 - Medical History PMH: Anxiety, Back Problems, Depression, Chronic Pain - Surgical History Surgical History: Cholecystectomy, Other surgeries: gastric bypass, lapband, abdominoplasty, right ankle fracture repair - Family History Family History: States: No Known Family Hx - Living Arrangements Living Arrangements: Alone - Social History Current smoker - smoking cessation education provided: Yes Alcohol: None Drugs: Cannabis - Home Medications Home Medications: Ambulatory Orders Medication Instructions Recorded Naproxen [Naprosyn Tab] 1 tab PO Q8 PRN #21 tab 05/29/16 Cephalexin [cephalexin] 500 mg PO BID #14 cap 11/25/16 Ibuprofen [Motrin] 600 mg PO Q6 #20 tab 11/25/16 Cyclobenzaprine [Cyclobenzaprine 10 mg PO Q8H PRN #2 tab 12/14/16 HCl] Ibuprofen [Motrin Tab] 800 mg PO ONCE #1 tab 12/14/16 Albuterol HFA [Ventolin HFA 90 1 puff IH ASDIR #1 unit 04/19/17 mcg/actuation (8 g)] Azithromycin [Zithromax] 250 mg PO DAILY #6 tab 04/19/17 Benzonatate 200 mg PO TID PRN #20 capsule 04/19/17 Naproxen [Naprosyn] 500 mg PO BID #20 tab 04/19/17 Amoxicillin [Amoxil 500 mg Cap] 500 mg PO TID #30 cap 05/05/17 Meloxicam [Mobic] 7.5 mg PO DAILY PRN #14 tab 05/05/17 Ofloxacin Otic 0.3% [Floxin 0.3% 10 drop DAILY #1 bottle 05/05/17 Otic Soln] Ciprofloxacin/Hydrocortisone 3 drop OS BID 7 Days #1 drops.susp 11/01/17 [Cipro Hc Otic Suspension] Loratadine [Claritin] 10 mg PO DAILY PRN #10 tab 11/01/17 Ibuprofen [Motrin Tab] 800 mg PO Q8 PRN #20 tab 01/12/18 - Allergies Allergies/Adverse Reactions: Allergies Allergy/AdvReac Type Severity Reaction Status Date / Time latex Allergy RASH Verified 12/14/16 17:43 tramadol Allergy RASH Verified 12/14/16 17:43 [facility] Allergy Mild RASH Uncoded 12/14/16 17:43 Review of Systems ROS Statement: Except As Marked, All Systems Reviewed And Found Negative Constitutional: Negative for: Fever ENT: Positive for: Other (dental pain) Musculoskeletal: Positive for: Neck Pain, Back Pain, Other (knee pain) Physical Exam - Reviewed Nursing Documentation Reviewed: Yes Vital Signs Reviewed: Yes - Physical Exam Appears: Positive for: Well, Non-toxic, No Acute Distress Skin: Positive for: Normal Color. Negative for: Rash Eye Exam: Positive for: Normal appearance ENT: Positive for: Other (Multiple missing molar teeth right upper mandible, normal-looking gingiva with no dental abscess or gingivitis, remaining dentition intact, airway patent, uvula midline) Neck: Positive for: Normal Cardiovascular/Chest: Positive for: Regular Rate, Rhythm Respiratory: Positive for: Normal Breath Sounds. Negative for: Respiratory Distress Extremity: Positive for: Normal ROM Neurologic/Psych: Positive for: Alert, Oriented, Gait (steady) - ECG O2 Sat by Pulse Oximetry: 98 Pulse Ox Interpretation: Normal Medical Decision Making Medical Decision Makin47 year old female with dental pain Plan: IM toradol Patient given prescription for Motrin to take along with Tylenol No. 4. She was advised to follow-up with her dentist as soon as possible and also for lead based paint technician. Disposition - Clinical Impression Clinical Impression: Pain, dental - Patient ED Disposition Is Patient to be Admitted: No Counseled Patient/Family Regarding: Diagnosis, Need For Followup, Rx Given - Disposition Referrals: Christiano Velasquez MD [Medical Doctor] - Disposition: Routine/Home Disposition Time: 04:05 Condition: STABLE Additional Instructions: Take prescription meds as directed. Follow up OLU with dentist and lead based paint technician. Prescriptions: Ibuprofen [Motrin Tab] 800 mg PO Q8 PRN #20 tab PRN Reason: Pain, Moderate (4-7) Instructions: Dental Pain Forms: [facility] (Niuean)
[2018-01-12 05:01] VITALS: BP 112/68; PULSE 85; RESP 19; TEMP 98.3
== END 2018-01-12 05:00 | disposition home or self-care (01) ==
LOC: H.ER 03:43
DX: K08.89 Other specified disorders of teeth and supporting structures (principal); M54.9 Dorsalgia, unspecified; G89.29 Other chronic pain
CPT/HCPCS: 96372; 99282; J1885

== ENCOUNTER 2018-01-13 21:14 | Emergency (ER) | payer MEDICARE ==
[2018-01-13 21:51] VITALS: BP 116/74; PULSE 88; RESP 22; TEMP 98.5; O2SAT 100
--- NOTE | 2018-01-13 22:45 | ED PDOC ---
HPI: Dental Pain/Injury Time Seen by Provider: 01/13/18 22:05 Chief Complaint (Nursing): Dental Pain Chief Complaint (Provider): Mouth Pain History Per: Patient History/Exam Limitations: no limitations Onset/Duration Of Symptoms: Days (x1 week) Current Symptoms Are (Timing): Still Present Additional Complaint(s): 47-year-old female presents with dental pain ongoing for about 1 week. Patient has been taking Ibuprofen which has not helped the pain, last taken at 8pm. She is able to tolerate liquids and solids. Patient also states she has chronic neck, back and knee pain and is under the care of paint process engineer Dr. Velasquez and takes Tylenol No. 4 for pain daily, but claims she has not taken any today despite having it at home. Patient reports that her dentist is not open until Monday for her to make an appointment. No other complaints. Patient was seen in [facility] ED yesterday morning for similar symptoms. PMD: Reveredo LMP:12/30/17 Past Medical History Reviewed: Historical Data, Nursing Documentation, Vital Signs Vital Signs: Last Vital Signs Temp 98.5 F 01/13/18 21:48 Pulse 88 01/13/18 21:48 Resp 22 01/13/18 21:48 BP 116/74 01/13/18 21:48 Pulse Ox 100 01/13/18 21:48 - Medical History PMH: Anxiety, Back Problems, Depression, Chronic Pain - Surgical History Surgical History: Cholecystectomy, - Family History Family History: States: Unknown Family Hx - Home Medications Home Medications: Ambulatory Orders Medication Instructions Recorded RX: Naproxen [Naprosyn Tab] 1 tab PO Q8 PRN #21 tab 05/29/16 Cephalexin [cephalexin] 500 mg PO BID #14 cap 11/25/16 Ibuprofen [Motrin] 600 mg PO Q6 #20 tab 11/25/16 Cyclobenzaprine [Cyclobenzaprine 10 mg PO Q8H PRN #2 tab 12/14/16 HCl] Ibuprofen [Motrin Tab] 800 mg PO ONCE #1 tab 12/14/16 Albuterol HFA [Ventolin HFA 90 1 puff IH ASDIR #1 unit 04/19/17 mcg/actuation (8 g)] Azithromycin [Zithromax] 250 mg PO DAILY #6 tab 01/24/18 Naproxen [Naprosyn] 500 mg PO BID #20 tab 04/19/17 RX: Benzonatate 200 mg PO TID PRN #20 capsule 04/19/17 Meloxicam [Mobic] 7.5 mg PO DAILY PRN #14 tab 05/05/17 RX: Amoxicillin [Amoxil 500 mg Cap] 500 mg PO TID #30 cap 05/05/17 RX: Ofloxacin Otic 0.3% [Floxin 10 drop DAILY #1 bottle 05/05/17 0.3% Otic Soln] Loratadine [Claritin] 10 mg PO DAILY PRN #10 tab 11/01/17 RX: Ciprofloxacin/Hydrocortisone 3 drop OS BID 7 Days #1 drops.susp 11/01/17 [Cipro Hc Otic Suspension] Ibuprofen [Motrin Tab] 800 mg PO Q8 PRN #20 tab 01/12/18 - Allergies Allergies/Adverse Reactions: Allergies Allergy/AdvReac Type Severity Reaction Status Date / Time latex Allergy RASH Verified 12/14/16 17:43 tramadol Allergy RASH Verified 12/14/16 17:43 [facility] Allergy Mild RASH Uncoded 12/14/16 17:43 Review of Systems ROS Statement: Except As Marked, All Systems Reviewed And Found Negative ENT: Positive for: Mouth Pain (dental pain) Physical Exam - Reviewed Nursing Documentation Reviewed: Yes Vital Signs Reviewed: Yes - Physical Exam Appears: Positive for: Well, Non-toxic, No Acute Distress (Talking on cell phone, resting comfortably.) Head Exam: Positive for: ATRAUMATIC, NORMOCEPHALIC Skin: Positive for: Normal Color, Warm, Dry Eye Exam: Positive for: EOMI, PERRL ENT: Positive for: Pharynx Is (clear, uvula midline. Airway patent, (-) stridor.), Other (diffuse gingival tenderness (-) fluctuance. Multiple missing molar teeth to right upper mandible; (-) dental abscess or evidence of gingivitis. Remaining dentition intact. Poor dental hygiene (+)diffuse plaque build up). Negative for: Tonsillar Exudate, Tonsillar Swelling Neck: Positive for: Painless ROM, Supple Cardiovascular/Chest: Positive for: Regular Rate, Rhythm Respiratory: Positive for: Normal Breath Sounds Extremity: Positive for: Normal ROM. Negative for: Deformity Neurologic/Psych: Positive for: Alert, Oriented (x3), Gait (steady in ED) - Laboratory Results Urine POC: Negative - ECG O2 Sat by Pulse Oximetry: 100 (RA) Pulse Ox Interpretation: Normal Medical Decision Making Medical Decision Makin Initial Impression: Dental/Gum Pain Plan: -Toradol IM -Upreg -Utox -Tylenol #3 (Not driving) -Re-evaluation 2339 On re-evaluation, patient reports improvement of symptoms. On exam, patient remains AAOx3, in no acute distress. Lungs clear to auscultation, cardiac RRR, r epeat neuro exam shows no focal findings. Vitals stable. Lab/Diagnostic results d/w the patient in great detail. Diagnosis of gum pain, mouth irritation d/w the patient. Based on history, exam and diagnostic results, plan will be for outpatient follow up with dental. Patient instructed to follow-up with pmd / referral provided / the clinic in 1- 2 days without fail. Advised to take medication as prescribed. Return to the emergency room at any time for any new or worsening symptoms. Patient states she fully agrees with and understands discharge instructions. States that she agrees with the plan and disposition. Verbalized and repeated discharge instructions and plan. I have given the patient opportunity to ask any additional questions. Disposition - Clinical Impression Clinical Impression: Pain, dental, Pain in gums - Patient ED Disposition Is Patient to be Admitted: No Counseled Patient/Family Regarding: Studies Performed, Diagnosis, Need For Followup, Rx Given - Disposition Referrals: your, dentist [Other] Christiano Velasquez MD [Medical Doctor] - Disposition: Routine/Home Disposition Time: 23:40 Condition: STABLE Additional Instructions: Continue prescription from prior ED visit in conjunction with your Tylenol with Codeine. Follow up with dental as soon as possible. The emergency medical care you received today was directed at your acute symptoms. If you were prescribed any medication, please fill it and take as directed. It may take several days for your symptoms to resolve. Return to the Emergency Department if your symptoms worsen, do not improve, or if you have any other problems. Please contact your doctor in 2 days for re-evaluation and follow up / or call one of the physicians/clinics you have been referred to that are listed on the Patient Visit Information form that is included in your discharge packet. Bring any paperwork you were given at discharge with you along with any medications you are taking to your follow up visit. Our treatment cannot replace ongoing medical care by a primary care provider (PCP) outside of the emergency department. Instructions: Dental Pain (DC) Forms: [facility] (Greenlandic) Print Language: SERBIAN - POA Present On Arrival: None
[2018-01-13] MEDS ORDERED: Acetaminophen-Codeine 300/30 mg Tab PO STA (22:54)
[2018-01-13] MEDS ORDERED: Acetaminophen-Codeine 300/30 mg Tab ONE (23:24)
[2018-01-14 00:04] LABS: OPIATES, UR NEGATIVE (NEGATIVE)
[2018-01-14 00:09] LABS: BARBITURATES, UR NEGATIVE (NEGATIVE); BENZODIAZEPINES, UR POSITIVE (NEGATIVE); PHENCYCLIDINE, UR NEGATIVE (NEGATIVE)
== END 2018-01-13 23:53 | disposition home or self-care (01) ==
LOC: H.ER 21:14
DX: K08.89 Other specified disorders of teeth and supporting structures (principal); Z86.59 Personal history of other mental and behavioral disorders; G89.29 Other chronic pain
CPT/HCPCS: 81025; 96372; 99282; G0480; J1885

== ENCOUNTER 2018-02-25 15:11 | Emergency (ER) | payer MEDICARE ==
[2018-02-25] MEDS ORDERED: Morphine 4 MG/ML VIAL IVP STA (16:41)
[2018-02-25] MEDS ORDERED: Alum-Mag Hydrox-Simethicone Susp (30 mL) PO STA (16:41)
[2018-02-25] MEDS ORDERED: Sodium Chloride 0.9% 1,000 ML IV STA (16:43)
--- NOTE | 2018-02-25 16:47 | ED PDOC ---
HPI: Abdomen Time Seen by Provider: 02/25/18 16:17 Chief Complaint (Nursing): Abdominal Pain Chief Complaint (Provider): Abdominal Pain History Per: Patient History/Exam Limitations: no limitations Onset/Duration Of Symptoms: Days (x1) Current Symptoms Are (Timing): Still Present Location Of Pain/Discomfort: Epigastric Associated Symptoms: Nausea, Vomiting, Chest Pain. denies: Diarrhea Exacerbating Factors: Food Additional Complaint(s): 47 years old female with history of GERD and gallbladder disease presents to ER for evaluation of epigastric abdominal pain radiating to chest onset yesterday. Patient reports associated nausea and vomiting after she had dinner yesterday around 6:30 pm. She denies experiencing similar symptoms before or taking medication for pain other than Aspirin and Zonax for anxiety. Patient denies having diarrhea. PMD: in C[facility] Past Medical History Reviewed: Historical Data, Nursing Documentation, Vital Signs Vital Signs: Last Vital Signs Temp 98.3 F 02/25/18 15:12 Pulse 58 L 02/25/18 15:12 Resp 16 02/25/18 15:12 BP 133/84 02/25/18 15:12 Pulse Ox 95 02/25/18 15:12 - Medical History PMH: Anxiety, Back Problems, Depression, Gall Bladder Disease, GERD, Chronic Pain - Surgical History Surgical History: Cholecystectomy, Other surgeries: Gastric bypass, left ankle surgey, tummy tuck - Family History Family History: States: Unknown Family Hx - Social History Current smoker - smoking cessation education provided: Yes Alcohol: None Drugs: Denies - Home Medications Home Medications: Ambulatory Orders Medication Instructions Recorded RX: Naproxen [Naprosyn Tab] 1 tab PO Q8 PRN #21 tab 05/29/16 Cephalexin [cephalexin] 500 mg PO BID #14 cap 11/25/16 Ibuprofen [Motrin] 600 mg PO Q6 #20 tab 11/25/16 Cyclobenzaprine [Cyclobenzaprine 10 mg PO Q8H PRN #2 tab 12/14/16 HCl] Ibuprofen [Motrin Tab] 800 mg PO ONCE #1 tab 12/14/16 Albuterol HFA [Ventolin HFA 90 1 puff IH ASDIR #1 unit 04/19/17 mcg/actuation (8 g)] Azithromycin [Zithromax] 250 mg PO DAILY #6 tab 04/19/17 Naproxen [Naprosyn] 500 mg PO BID #20 tab 04/19/17 RX: Benzonatate 200 mg PO TID PRN #20 capsule 04/19/17 Meloxicam [Mobic] 7.5 mg PO DAILY PRN #14 tab 05/05/17 RX: Amoxicillin [Amoxil 500 mg Cap] 500 mg PO TID #30 cap 05/05/17 RX: Ofloxacin Otic 0.3% [Floxin 10 drop DAILY #1 bottle 05/05/17 0.3% Otic Soln] Loratadine [Claritin] 10 mg PO DAILY PRN #10 tab 11/01/17 RX: Ciprofloxacin/Hydrocortisone 3 drop OS BID 7 Days #1 drops.susp 11/01/17 [Cipro Hc Otic Suspension] Ibuprofen [Motrin Tab] 800 mg PO Q8 PRN #20 tab 01/12/18 Esomeprazole Magnesium [Nexium] 20 mg PO DAILY #30 capsule.dr 02/25/18 Famotidine [Pepcid] 20 mg PO DAILY #14 tab 02/25/18 - Allergies Allergies/Adverse Reactions: Allergies Allergy/AdvReac Type Severity Reaction Status Date / Time latex Allergy RASH Verified 02/26/18 03:25 tramadol Allergy RASH Verified 02/26/18 03:25 [facility] Allergy Mild RASH Uncoded 02/26/18 03:25 Review of Systems ROS Statement: Except As Marked, All Systems Reviewed And Found Negative Cardiovascular: Positive for: Chest Pain Gastrointestinal: Positive for: Nausea, Vomiting, Abdominal Pain (epigastric). Negative for: Diarrhea Physical Exam - Reviewed Nursing Documentation Reviewed: Yes Vital Signs Reviewed: Yes - Physical Exam Appears: Positive for: Non-toxic, Uncomfortable Head Exam: Positive for: ATRAUMATIC, NORMOCEPHALIC Skin: Positive for: Normal Color, Warm, Dry Eye Exam: Positive for: Normal appearance, EOMI, PERRL ENT: Positive for: Normal ENT Inspection Neck: Positive for: Normal, Painless ROM, Supple Cardiovascular/Chest: Positive for: Other (chest wall tenderness). Negative for: Chest Non Tender Gastrointestinal/Abdominal: Positive for: Tenderness (epigastric) Extremity: Positive for: Normal ROM. Negative for: Pedal Edema, Deformity Neurologic/Psych: Positive for: Alert, Oriented (x3) - Laboratory Results Result Diagrams: 02/25/18 17:13 02/25/18 17:13 - ECG O2 Sat by Pulse Oximetry: 95 (RA) Pulse Ox Interpretation: Normal - Progress Re-evaluation Time: 19:14 Condition: Re-examined, Improved Medical Decision Making Medical Decision Making: Time: 164 Initial Impression: abdominal pain. Differential includes but not limited to acute gastritis, pancreatitis, and small bowel obstruction Initial Plan: --Abdomen/Pelvis CT --EKG --CMP --Lipase --Urine --Urine dipstick --CBC --Lidocaine 2% Viscous 15 ml PO --Maalox 30 ml PO --Morphine 4 mg IV --NaCL 1,000 ml IVP --Zofran 4 mg IVP --Pepcid 20 mg IVP 1844 Abdomen/Pelvis CT FINDINGS: LUNG BASES: The lung bases appear clear. No pleural effusions are seen. LIVER: Unremarkable. GALLBLADDER AND BILE DUCTS: Gallbladder has been surgically removed. Postoperative changes with surgical suture material seen in the region of the stomach as well as small bowel in the left midabdomen. There is no evidence of bowel obstruction on the current study. There is thinning of the anterior abdominal musculature. PANCREAS: Unremarkable. SPLEEN: Unremarkable. ADRENAL GLANDS: Unremarkable. KIDNEYS, URETERS, AND BLADDER: The kidneys appear within normal limits. There is no hydronephrosis or hydroureter. No urinary calculi are seen. STOMACH AND BOWEL: Unremarkable appearance of the stomach and bowel. No evidence of bowel obstruction. No evidence suggesting enteritis or colitis. APPENDIX: No evidence of acute appendicitis on CT examination. PERITONEUM: No free fluid. No free air. LYMPH NODES: No lymphadenopathy is evident. VASCULATURE: No evidence of abdominal aortic aneurysm. BONES: No aggressive appearing osseous lesion. No acute osseous pathology evident. IMPRESSION: No acute intra-abdominal abnormality. Postsurgical changes with her gallbladder surgically removed. Postoperative changes are seen in the stomach and small bowel left midabdomen. Clinical correlation and correlation with upper GI examination may be considered. Scribe Attestation: Documented by Etelvina Bennett, acting as a scribe for Mallika Avelar MD. Provider Scribe Attestation: All medical record entries made by the Scribe were at my direction and personally dictated by me. I have reviewed the chart and agree that the record accurately reflects my personal performance of the history, physical exam, medical decision making, and the department course for this patient. I have also personally directed, reviewed, and agree with the discharge instructions and disposition. Disposition - Clinical Impression Clinical Impression: Abdominal pain in female - Patient ED Disposition Is Patient to be Admitted: No Doctor Will See Patient In The: Office Counseled Patient/Family Regarding: Studies Performed, Diagnosis - Disposition Referrals: José Antonio Loving MD, PhD [Staff Provider] - Disposition: Routine/Home Disposition Time: 19:18 Condition: GOOD Additional Instructions: CELIA WAGNER, thank you for letting us take care of you today. Your provider was Mallika Avelar MD and you were treated for VOMITING. The emergency medical care you received today was directed at your acute symptoms. If you were prescribed any medication, please fill it and take as directed. It may take several days for your symptoms to resolve. Return to the Emergency Department if your symptoms worsen, do not improve, or if you have any other problems. Please contact your doctor or call one of the physicians/clinics you have been referred to that are listed on the Patient Visit Information form that is included in your discharge packet. Bring any paperwork you were given at discharge with you along with any medications you are taking to your follow up visit. Our treatment cannot replace ongoing medical care by a primary care provider outside of the emergency department. Thank you for allowing the [facility] team to be part of your care today. If you had an X-Ray or CT scan: A Radiologist will review the ED reading if any change in treatment is needed we will contact you. If you had a blood, urine, or wound culture: It will take several days for the results, if any change in treatment is needed we will contact you. If you had an STI test: It will take 48 hours for the results. Please call after 1 week if you have not heard back. Prescriptions: Esomeprazole Magnesium [Nexium] 20 mg PO DAILY #30 capsule. Famotidine [Pepcid] 20 mg PO DAILY #14 tab Instructions: Stomach Ache and Stomach Upset Forms: [id number] (Ecuadorean)
[2018-02-25] MEDS ORDERED: Alum-Mag Hydrox-Simethicone Susp (30 mL) ONE (17:03)
[2018-02-25] MEDS ORDERED: Morphine 4 MG/ML VIAL ONE (17:03)
[2018-02-25 17:21] LABS: BASO # 0.1 K/uL (0.0-0.2); BASO % 0.7 % (0.0-2.0); EOS # 0.2 K/uL (0.0-0.7); EOS % 2.1 % (0.0-4.0); HEMOGLOBIN 8.1 g/dL (12.0-16.0); LYMPH # 3.4 K/uL (1.0-4.3); LYMPH % 39.3 % (20.0-40.0); MEAN CELL VOLUME 65.1 fl (81.0-99.0); MEAN CORPUSCULAR HEMOGLOBIN 19.3 pg (27.0-31.0); MEAN CORPUSCULAR HGB CONC 29.7 g/dL (33.0-37.0); MONO # 0.2 K/uL (0.0-0.8); MONO % 2.7 % (0.0-10.0); NEUT # 4.7 K/uL (1.8-7.0); NEUT % 55.2 % (50.0-75.0); NRBC % 0.1 % (0.0-0.0); RBC 4.17 Mil/uL (3.80-5.20); RED CELL DISTRIBUTION WIDTH 21.2 % (11.5-14.5); WHITE BLOOD COUNT 8.5 K/uL (4.8-10.8)
[2018-02-25 17:30] LABS: ALB/GLOB RATIO 0.9 (1.0-2.1); ALBUMIN 3.6 g/dL (3.5-5.0); ALT/SGPT 29 U/L (9-52); AST/SGOT 20 U/L (14-36); BLOOD UREA NITROGEN 9 mg/dl (7-17); CALCIUM 8.9 mg/dL (8.4-10.2); GFR NON-AFRICAN AMERICAN > 60; LIPASE 49 U/L (23-300)
[2018-02-25] MEDS ORDERED: Potassium Chloride 20 mEq ER Tab PO ONE ×2 (17:32→19:16)
[2018-02-25] MEDS ORDERED: Sodium Chloride 0.9% 50 ML IV ONE (17:58)
[2018-02-25] MEDS ORDERED: Iohexol 300 100 ML IJ ONE (17:58)
[2018-02-25 19:53] VITALS: BP 114/73; PULSE 85; RESP 20; TEMP 97.9
--- NOTE | 2018-02-25 20:46 | CARD ---
APPROVED REPORT Date of service: 02/25/2018 EKG Measurement Heart [id number] P36 [id number] <Conclusion> Normal sinus rhythm Normal ECG
--- NOTE | 2018-02-26 10:31 | CT ---
Date of service: 02/25/2018 PROCEDURE: CT Abdomen and Pelvis with contrast HISTORY: abdominal pain vomiting COMPARISON: None. TECHNIQUE: Intravenous contrast dose: 95 cc Omnipaque 300 Radiation dose: Total exam DLP = 899.22 mGy-cm. This CT exam was performed using one or more of the following dose reduction techniques: Automated exposure control, adjustment of the mA and/or kV according to patient size, and/or use of iterative reconstruction technique. FINDINGS: LOWER THORAX: Dilated distal esophagus. LIVER: Unremarkable. No gross lesion or ductal dilatation. GALLBLADDER AND BILE DUCTS: Status post cholecystectomy. No abnormality is seen in the gallbladder fossa. PANCREAS: Unremarkable. No gross lesion or ductal dilatation. SPLEEN: Unremarkable. ADRENALS: Unremarkable. No mass. KIDNEYS AND URETERS: Unremarkable. No hydronephrosis. No solid mass. VASCULATURE: Unremarkable. No aortic aneurysm. No atherosclerotic calcification or mural plaque present. BOWEL: Unremarkable. No obstruction. No gross mural thickening. Postoperative changes related to gastric bypass procedure. APPENDIX: Normal appendix. PERITONEUM: Unremarkable. No free fluid. No free air. LYMPH NODES: Unremarkable. No enlarged lymph nodes. BLADDER: Unremarkable. REPRODUCTIVE: Unremarkable. BONES: No acute fracture. OTHER FINDINGS: None. IMPRESSION: No significant or acute findings to account for/ related to the clinical presentation. Additional benign and/or incidental findings described above. Concordant results (preliminary interpretation) provided by [employer]. Procedure Completed: 18:07 Preliminary Report: Dictated and Authenticated: 18:44. Final Interpretation: 10:27. February 26, 2018
[2018-02-26 11:15] VITALS: O2SAT 95
== END 2018-02-25 19:57 | disposition home or self-care (01) ==
LOC: H.ER 15:11
DX: R10.13 Epigastric pain (principal); K21.9 Gastro-esophageal reflux disease without esophagitis
CPT/HCPCS: 74177; 80053; 81025; 83690; 85025; 93005; 96374; 96375; 99284; J2270; J2405; J7030; Q9967

== ENCOUNTER 2018-02-26 03:16 | Emergency (ER) | payer MEDICARE ==
[2018-02-26 03:27] VITALS: BMI 44.1
[2018-02-26] MEDS ORDERED: Sodium Chloride 0.9% 1,000 ML IV STA (04:19)
[2018-02-26 04:28] LABS: BASO # 0.1 K/uL (0.0-0.2); BASO % 1.2 % (0.0-2.0); EOS # 0.2 K/uL (0.0-0.7); HEMOGLOBIN 7.7 g/dL (12.0-16.0); LYMPH # 2.4 K/uL (1.0-4.3); LYMPH % 28.5 % (20.0-40.0); MEAN CELL VOLUME 63.8 fl (81.0-99.0); MEAN CORPUSCULAR HEMOGLOBIN 19.4 pg (27.0-31.0); MEAN CORPUSCULAR HGB CONC 30.4 g/dL (33.0-37.0); MEAN PLATELET VOLUME 7.5 fl (7.2-11.7); MONO # 0.4 K/uL (0.0-0.8); MONO % 5.3 % (0.0-10.0); NEUT # 5.2 K/uL (1.8-7.0); RBC 3.98 Mil/uL (3.80-5.20); WHITE BLOOD COUNT 8.3 K/uL (4.8-10.8)
[2018-02-26 04:37] LABS: ALB/GLOB RATIO 0.9 (1.0-2.1); ALBUMIN 3.4 g/dL (3.5-5.0); ALT/SGPT 25 U/L (9-52); AST/SGOT 19 U/L (14-36); BLOOD UREA NITROGEN 8 mg/dl (7-17); CALCIUM 8.6 mg/dL (8.4-10.2); GFR NON-AFRICAN AMERICAN > 60; LIPASE 52 U/L (23-300)
[2018-02-26 04:51] LABS: SQUAMOUS EPITHIAL 3 /hpf (0-5); URINE BILIRUBIN NEGATIVE (NEGATIVE); URINE BLOOD NEGATIVE (NEGATIVE); URINE CLARITY SLIGHTY-CLOUDY (Clear); URINE COLOR YELLOW (YELLOW); URINE GLUCOSE (UA) NEG (Normal); URINE LEUKOCYTE ESTERASE TRACE Leu/uL (Negative); URINE PROTEIN NEGATIVE (NEGATIVE); URINE UROBILINOGEN 0.2-1.0 mg/dL (0.2-1.0)
[2018-02-26 04:52] LABS: BARBITURATES, UR NEGATIVE (NEGATIVE); BENZODIAZEPINES, UR POSITIVE (NEGATIVE); OPIATES, UR POSITIVE (NEGATIVE); PHENCYCLIDINE, UR NEGATIVE (NEGATIVE)
--- NOTE | 2018-02-26 04:53 | ED PDOC ---
HPI: Abdomen Time Seen by Provider: 02/26/18 03:30 Chief Complaint (Nursing): GI Problem Chief Complaint (Provider): abdominal pain History Per: Patient History/Exam Limitations: no limitations Onset/Duration Of Symptoms: Days (x2) Current Symptoms Are (Timing): Still Present Associated Symptoms: Nausea, Vomiting Additional Complaint(s): Savannah Denise is a 47 year old female, with a past medical history of gastritis, GERD, morbid obesity, bronchitis and gastric bypass, who presents to the emergency department complaining of abdominal pain associated with nausea and vomiting onset for x2 days. Patient was seen in the ED for the same several hours ago where she had full work up including CT and labs, and was diagnosed with gastritis. Patient states she went home and after pain medications worn off she started vomiting and developed an abdominal pain. She denies any other medical complaints. PMD: None provided. Past Medical History Reviewed: Historical Data, Nursing Documentation, Vital Signs Vital Signs: Last Vital Signs Temp 97.7 F 02/26/18 03:26 Pulse 94 H 02/26/18 03:26 Resp 18 02/26/18 03:26 BP 123/73 02/26/18 03:26 Pulse Ox 98 02/26/18 03:26 - Medical History PMH: Anemia, Anxiety (Panic attacks), Arthritis, Back Problems, Bronchitis, Depression, Gastritis, Gall Bladder Disease, GERD, Chronic Pain - Surgical History Surgical History: Cholecystectomy, Other surgeries: gastric bypass - Family History Family History: States: Unknown Family Hx - Social History Current smoker - smoking cessation education provided: Yes (light smoker <10 cigarettes daily) Alcohol: None Drugs: Denies - Home Medications Home Medications: Ambulatory Orders Medication Instructions Recorded RX: Naproxen [Naprosyn Tab] 1 tab PO Q8 PRN #21 tab 05/29/16 Cephalexin [cephalexin] 500 mg PO BID #14 cap 11/25/16 Ibuprofen [Motrin] 600 mg PO Q6 #20 tab 11/25/16 Cyclobenzaprine [Cyclobenzaprine 10 mg PO Q8H PRN #2 tab 12/14/16 HCl] Ibuprofen [Motrin Tab] 800 mg PO ONCE #1 tab 12/14/16 Albuterol HFA [Ventolin HFA 90 1 puff IH ASDIR #1 unit 04/19/17 mcg/actuation (8 g)] Azithromycin [Zithromax] 250 mg PO DAILY #6 tab 04/19/17 Naproxen [Naprosyn] 500 mg PO BID #20 tab 04/19/17 RX: Benzonatate 200 mg PO TID PRN #20 capsule 04/19/17 Meloxicam [Mobic] 7.5 mg PO DAILY PRN #14 tab 05/05/17 RX: Amoxicillin [Amoxil 500 mg Cap] 500 mg PO TID #30 cap 05/05/17 RX: Ofloxacin Otic 0.3% [Floxin 10 drop DAILY #1 bottle 05/05/17 0.3% Otic Soln] Loratadine [Claritin] 10 mg PO DAILY PRN #10 tab 11/01/17 RX: Ciprofloxacin/Hydrocortisone 3 drop OS BID 7 Days #1 drops.susp 11/01/17 [Cipro Hc Otic Suspension] Ibuprofen [Motrin Tab] 800 mg PO Q8 PRN #20 tab 01/12/18 Esomeprazole Magnesium [Nexium] 20 mg PO DAILY #30 capsule.dr 02/25/18 Famotidine [Pepcid] 20 mg PO DAILY #14 tab 02/25/18 RX: Ferrous Sulfate 325 mg PO DAILY #14 tablet 02/26/18 - Allergies Allergies/Adverse Reactions: Allergies Allergy/AdvReac Type Severity Reaction Status Date / Time latex Allergy RASH Verified 02/26/18 03:25 tramadol Allergy RASH Verified 02/26/18 03:25 YUCA Allergy Mild RASH Uncoded 02/26/18 03:25 Review of Systems ROS Statement: Except As Marked, All Systems Reviewed And Found Negative Gastrointestinal: Positive for: Nausea, Vomiting (x2), Abdominal Pain Physical Exam - Reviewed Nursing Documentation Reviewed: Yes Vital Signs Reviewed: Yes - Physical Exam Appears: Positive for: No Acute Distress Head Exam: Positive for: ATRAUMATIC, NORMAL INSPECTION, NORMOCEPHALIC Skin: Positive for: Normal Color, Warm, Dry Eye Exam: Positive for: Normal appearance, EOMI, PERRL Neck: Positive for: Normal, Painless ROM Cardiovascular/Chest: Positive for: Regular Rate, Rhythm. Negative for: Murmur Respiratory: Positive for: Normal Breath Sounds. Negative for: Respiratory Distress Gastrointestinal/Abdominal: Positive for: Tenderness (epigastric), Other (obese) Back: Positive for: Normal Inspection. Negative for: L CVA Tenderness, R CVA Tenderness, Vertebral Tenderness Extremity: Positive for: Normal ROM (upper and lower extremities). Negative for: Deformity, Swelling Neurologic/Psych: Positive for: Alert, Oriented Comments: When provider attempted to examine patient, she was soundly asleep. Provider suspects she may have taken an unknown substance prior to arrival. - Laboratory Results Result Diagrams: 02/26/18 04:24 02/26/18 04:24 - ECG O2 Sat by Pulse Oximetry: 98 (RA) Pulse Ox Interpretation: Normal Medical Decision Making Medical Decision Making: Time: 03:30 Initial Impression: 47 y/o female with abdominal pain. Labs and CT Initial Plan: --Alcohol serum --CMP --Drug screen, urine --Urine --Urine dipstick --CBC w/ differential --Sodium Chloride 1,000 ml IV 1,000 mls/hr --Protonix Inj 40 mg IV --Zofran Inj 4 mg IV --Urinalysis --Reevaluation 07:00 -Patient will be signed out to Dr. Reece, pending CT. ----- Scribe Attestation: Documented by Merrill Kurtz, acting as a scribe for Moustapha Sahni MD. Provider Scribe Attestation: All medical record entries made by the Scribe were at my direction and personally dictated by me. I have reviewed the chart and agree that the record accurately reflects my personal performance of the history, physical exam, medical decision making, and the department course for this patient. I have also personally directed, reviewed, and agree with the discharge instructions and disposition. Disposition - Clinical Impression Clinical Impression: Abdominal pain, Anemia - Disposition Disposition: Transfer of Care Disposition Time: 07:00 Condition: IMPROVED Additional Instructions: follow up with your primary doctor in 1-2 days take iron for anemia return to the ED with any worsening or concerning symptoms Prescriptions: RX: Ferrous Sulfate 325 mg PO DAILY #14 tablet Instructions: Anemia Caused by Low Iron, Stomach Ache and Stomach Upset Forms: [employer] (Kiswahili) Patient Signed Over To: Howard Reece
[2018-02-26] MEDS ORDERED: Iohexol 240 (50 ml) PO ONE (05:49)
[2018-02-26] MEDS ORDERED: Iohexol 240 (50 ml) ONE (06:12)
--- NOTE | 2018-02-26 07:24 | ED PDOC ---
- Laboratory Results Result Diagrams: 02/26/18 04:24 02/26/18 04:24 - ECG O2 Sat by Pulse Oximetry: 98 (RA) Pulse Ox Interpretation: Normal Medical Decision Making Medical Decision Making: Time: 0700 Patient endorsed to provider by Dr. Sahni, pending CT with oral contrast. Time: 1032 PROCEDURE: CT Abdomen and Pelvis with contrast HISTORY: Nausea and abdominal pain COMPARISON: February 25, 2018. CT abdomen and pelvis TECHNIQUE: Intravenous contrast dose: Oral contrast only. Radiation dose: Total exam DLP = 939.89 mGy-cm. This CT exam was performed using one or more of the following dose reduction techniques: Automated exposure control, adjustment of the mA and/or kV according to patient size, and/or use of iterative reconstruction technique. FINDINGS: LOWER THORAX: Unremarkable. LIVER: Unremarkable. No gross lesion or ductal dilatation. GALLBLADDER AND BILE DUCTS: Status post cholecystectomy. No abnormality is seen in the gallbladder fossa. PANCREAS: Unremarkable. No gross lesion or ductal dilatation. SPLEEN: Unremarkable. ADRENALS: Unremarkable. No mass. KIDNEYS AND URETERS: Unremarkable. No hydronephrosis. No solid mass. VASCULATURE: Unremarkable. No aortic aneurysm. Focal atherosclerotic calcification present. BOWEL: Unremarkable. No obstruction. No gross mural thickening. Postoperative findings related to gastric bypass APPENDIX: A normal appendix is visualized in it's entirety. PERITONEUM: Unremarkable. No free fluid. No free air. LYMPH NODES: Unremarkable. No enlarged lymph nodes. BLADDER: Contrast in the urinary bladder relates to the prior CT scan of the abdomen and pelvis performed February 25, 2018. REPRODUCTIVE: Unremarkable. BONES: No acute fracture. OTHER FINDINGS: None. IMPRESSION: No acute findings related to/ accounting for the clinical presentation. Additional benign and/or incidental findings described above. No significant interval change compared to the prior examination(s). Patient has slightly elevated anemia and advised to take iron at home. Clinical Impression: Anemia Upon provider reevaluation patient is feeling better, is medically stable, and requires no further treatment in the ED at this time. Patient will be discharged home. Counseling was provided and all questions were answered regarding diagnosis and need for follow up with PMD. There is agreement to discharge plan. Return if symptoms persist or worsen. Scribe Attestation: Documented by Getachew Melton, acting as a scribe for Howard Reece MD. Provider Scribe Attestation: All medical record entries made by the Scribe were at my direction and personal ly dictated by me. I have reviewed the chart and agree that the record accurately reflects my personal performance of the history, physical exam, medical decision making, and the department course for this patient. I have also personally directed, reviewed, and agree with the discharge instructions and disposition. Disposition Counseled Patient/Family Regarding: Studies Performed, Diagnosis, Need For Followup - Clinical Impression Clinical Impression: Abdominal pain, Anemia - POA Present On Arrival: None - Disposition Disposition: Routine/Home Disposition Time: 11:00 Condition: IMPROVED Additional Instructions: follow up with your primary doctor in 1-2 days take iron for anemia return to the ED with any worsening or concerning symptoms Prescriptions: RX: Ferrous Sulfate 325 mg PO DAILY #14 tablet Instructions: Anemia Caused by Low Iron, Stomach Ache and Stomach Upset Forms: [employer] (Swedish)
--- NOTE | 2018-02-26 10:36 | CT ---
Date of service: 02/26/2018 PROCEDURE: CT Abdomen and Pelvis with contrast HISTORY: Nausea and abdominal pain COMPARISON: February 25, 2018. CT abdomen and pelvis TECHNIQUE: Intravenous contrast dose: Oral contrast only. Radiation dose: Total exam DLP = 939.89 mGy-cm. This CT exam was performed using one or more of the following dose reduction techniques: Automated exposure control, adjustment of the mA and/or kV according to patient size, and/or use of iterative reconstruction technique. FINDINGS: LOWER THORAX: Unremarkable. LIVER: Unremarkable. No gross lesion or ductal dilatation. GALLBLADDER AND BILE DUCTS: Status post cholecystectomy. No abnormality is seen in the gallbladder fossa. PANCREAS: Unremarkable. No gross lesion or ductal dilatation. SPLEEN: Unremarkable. ADRENALS: Unremarkable. No mass. KIDNEYS AND URETERS: Unremarkable. No hydronephrosis. No solid mass. VASCULATURE: Unremarkable. No aortic aneurysm. Focal atherosclerotic calcification present. BOWEL: Unremarkable. No obstruction. No gross mural thickening. Postoperative findings related to gastric bypass APPENDIX: A normal appendix is visualized in it's entirety. PERITONEUM: Unremarkable. No free fluid. No free air. LYMPH NODES: Unremarkable. No enlarged lymph nodes. BLADDER: Contrast in the urinary bladder relates to the prior CT scan of the abdomen and pelvis performed February 25, 2018. REPRODUCTIVE: Unremarkable. BONES: No acute fracture. OTHER FINDINGS: None. IMPRESSION: No acute findings related to/ accounting for the clinical presentation. Additional benign and/or incidental findings described above. No significant interval change compared to the prior examination(s).
[2018-02-26 11:03] VITALS: BP 119/60; PULSE 80; RESP 20; TEMP 97.6
[2018-02-26 11:18] VITALS: O2SAT 98
== END 2018-02-26 11:26 | disposition home or self-care (01) ==
LOC: H.ER 03:16
DX: R10.9 Unspecified abdominal pain (principal); D64.9 Anemia, unspecified; K21.9 Gastro-esophageal reflux disease without esophagitis
CPT/HCPCS: 74176; 80053; 81003; 81025; 83690; 85025; 96360; 99284; C9113; G0480; J2405; J7030; Q9966

== ENCOUNTER 2018-04-07 17:30 | Emergency (ER) | payer MEDICARE ==
[2018-04-07 17:30] VITALS: BMI 44.1
[2018-04-07 17:46] VITALS: BP 110/59; O2SAT 98
[2018-04-07] MEDS ORDERED: Albuterol-Ipratrop 3 mg / 0.5 (3 ml) UD INH STA (19:07)
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
[2018-04-07] MEDS ORDERED: Sodium Chloride 0.9% 1,000 ML IV STA (19:11)
[2018-04-07 20:19] VITALS: PULSE 100; RESP 21; TEMP 99.8
== END 2018-04-07 22:35 | disposition home or self-care (01) ==
LOC: H.ER 17:30
DX: J11.1 Influenza due to unidentified influenza virus with other respiratory manifestations (principal); R05 Cough
CPT/HCPCS: 81025; 94150; 94640; 99285; J7030

== ENCOUNTER 2018-05-07 20:20 | Emergency (ER) | payer MEDICARE ==
[2018-05-07 20:20] VITALS: BMI 44.1
[2018-05-07 20:27] VITALS: RESP 18
[2018-05-07] MEDS ORDERED: DiphenhydrAMINE 50 mg/ml Inj IVP STA (20:33)
[2018-05-07] MEDS ORDERED: Albuterol 0.083% Inhal Sol (2.5 mg/3 mL) UD INH ONE (20:33)
--- NOTE | 2018-05-07 21:02 | ED PDOC ---
HPI: Allergic Reaction Time Seen by Provider: 05/07/18 20:32 Chief Complaint (Nursing): Allergic Reaction Chief Complaint (Provider): Allergic Reaction History Per: Patient, EMS History/Exam Limitations: no limitations Onset/Duration Of Symptoms: Days Current Symptoms Are (Timing): Still Present Context: Food Possible Cause: Food Home/EMS Treatment: Benadryl Additional Complaint(s): 47 y/o female presents to the ED for evaluation of an allergic reaction. Patient reports she was eating out today when accidentally ate [place]. Patient states she has an allergy to Y[place] and was unaware it was placed in her food because it was smashed. Patient reports of taking one 12.5 mg tablet of Benadryl for symptoms. EMS report patient has an epi-pen but was not deployed because patient was not educated on how to use it. Otherwise, patient offers no other complaints. PMD: Past Medical History Reviewed: Historical Data, Nursing Documentation, Vital Signs Vital Signs: Last Vital Signs Temp 97.8 F 05/07/18 20:24 Pulse 102 H 05/07/18 20:24 Resp 18 05/07/18 20:24 BP 117/70 05/07/18 20:24 Pulse Ox 99 05/07/18 20:24 - Medical History PMH: Anemia, Anxiety (Panic attacks), Arthritis, Back Problems, Bronchitis, Depression, Gastritis, Gall Bladder Disease, GERD, Chronic Pain Denies: Asthma, CAD, Diabetes, HTN, Hyperlipidemia - Surgical History Surgical History: Cholecystectomy, Other surgeries: Abdominoplasty and ankle surgery - Family History Family History: States: Unknown Family Hx - Social History Current smoker - smoking cessation education provided: No Alcohol: None Drugs: Denies - Immunization History Hx Influenza Vaccination: No - Home Medications Home Medications: Ambulatory Orders Medication Instructions Recorded RX: Naproxen [Naprosyn Tab] 1 tab PO Q8 PRN #21 tab 05/29/16 Cephalexin [cephalexin] 500 mg PO BID #14 cap 11/25/16 Ibuprofen [Motrin] 600 mg PO Q6 #20 tab 11/25/16 Cyclobenzaprine [Cyclobenzaprine 10 mg PO Q8H PRN #2 tab 12/14/16 HCl] Ibuprofen [Motrin Tab] 800 mg PO ONCE #1 tab 12/14/16 Albuterol HFA [Ventolin HFA 90 1 puff IH ASDIR #1 unit 04/19/17 mcg/actuation (8 g)] Azithromycin [Zithromax] 250 mg PO DAILY #6 tab 04/19/17 Naproxen [Naprosyn] 500 mg PO BID #20 tab 04/19/17 RX: Benzonatate 200 mg PO TID PRN #20 capsule 04/19/17 Meloxicam [Mobic] 7.5 mg PO DAILY PRN #14 tab 05/05/17 RX: Amoxicillin [Amoxil 500 mg Cap] 500 mg PO TID #30 cap 05/05/17 RX: Ofloxacin Otic 0.3% [Floxin 10 drop DAILY #1 bottle 05/05/17 0.3% Otic Soln] Loratadine [Claritin] 10 mg PO DAILY PRN #10 tab 11/01/17 RX: Ciprofloxacin/Hydrocortisone 3 drop OS BID 7 Days #1 drops.susp 11/01/17 [Cipro Hc Otic Suspension] Ibuprofen [Motrin Tab] 800 mg PO Q8 PRN #20 tab 01/12/18 Esomeprazole Magnesium [Nexium] 20 mg PO DAILY #30 capsule.dr 02/25/18 Famotidine [Pepcid] 20 mg PO DAILY #14 tab 02/25/18 RX: Ferrous Sulfate 325 mg PO DAILY #14 tablet 02/26/18 Acetaminophen [Tylenol 325mg tab] 650 mg PO Q6 PRN 7 Days tab 04/07/18 Nebulizer Accessories [Adult 1 each MC ONCE PRN #1 each 04/07/18 Aerosol Mask] Oseltamivir Cap [Tamiflu] 75 mg PO BID 5 Days cap 04/07/18 RX: Albuterol 0.083% [Albuterol 3 ml IH Q6 PRN 7 Days neb 04/07/18 0.083% Inhal [place] (2.5 mg/3 ml) UD] RX: Ibuprofen [Motrin Tab] 600 mg PO Q6 PRN 7 Days tab 04/07/18 RX: Nebulizer [Aeroeclipse II] 1 each MC ONCE PRN #1 each 04/07/18 Famotidine [Pepcid] 20 mg PO BID PRN #10 tab 05/07/18 predniSONE [Prednisone] 40 mg PO DAILY #8 tab 05/07/18 - Allergies Allergies/Adverse Reactions: Allergies Allergy/AdvReac Type Severity Reaction Status Date / Time latex Allergy RASH Verified 05/07/18 20:24 tramadol Allergy RASH Verified 05/07/18 20:24 [facility] Allergy Mild RASH Uncoded 04/07/18 17:43 Review of Systems ROS Statement: Except As Marked, All Systems Reviewed And Found Negative Constitutional: Positive for: Other (allergic reaction) ENT: Positive for: Throat Pain Respiratory: Positive for: Shortness of Breath Neurological: Positive for: Change in Speech (pt with a hoarse voice on examination) Physical Exam - Reviewed Nursing Documentation Reviewed: Yes Vital Signs Reviewed: Yes - Physical Exam Appears: Positive for: No Acute Distress Head Exam: Positive for: ATRAUMATIC, NORMOCEPHALIC Skin: Positive for: Normal Color, Warm, Dry Eye Exam: Positive for: Normal appearance ENT: Positive for: Normal ENT Inspection Neck: Positive for: Normal, Painless ROM Cardiovascular/Chest: Positive for: Regular Rate, Rhythm. Negative for: Murmur Respiratory: Positive for: Normal Breath Sounds. Negative for: Respiratory Distress Gastrointestinal/Abdominal: Positive for: Normal Exam, Soft. Negative for: Tenderness Extremity: Positive for: Normal ROM. Negative for: Deformity Neurologic/Psych: Positive for: Alert, Oriented. Negative for: Motor/Sensory Deficits - ECG O2 Sat by Pulse Oximetry: 99 (RA) Pulse Ox Interpretation: Normal Disposition - Clinical Impression Clinical Impression: Allergic reaction - Patient ED Disposition Is Patient to be Admitted: No Counseled Patient/Family Regarding: Studies Performed, Diagnosis, Need For Followup - Disposition Disposition: Routine/Home Disposition Time: 23:47 Condition: IMPROVED Additional Instructions: follow up with your primary doctor in 1-2 days use benadryl as needed return to the ED with any worsening or concerning symptoms Prescriptions: Famotidine [Pepcid] 20 mg PO BID PRN #10 tab PRN Reason: Heartburn predniSONE [Prednisone] 40 mg PO DAILY #8 tab Instructions: Drug Allergy Forms: [employer] (Croatian) Medical Decision Making Medical Decision Makin Upon provider reevaluation patient is feeling better, is medically stable, and requires no further treatment in the ED at this time. breathing comfortable, alert and oriented. awake and in no distress. vitals stable. Patient will be discharged home. Counseling was provided and all questions were answered regarding diagnosis.
[2018-05-07 23:58] VITALS: BP 126/73; PULSE 86; TEMP 97.3
[2018-05-08 05:13] VITALS: O2SAT 99
== END 2018-05-08 00:05 | disposition home or self-care (01) ==
LOC: H.ER 20:20
DX: T78.40XA Allergy, unspecified, initial encounter (principal)
CPT/HCPCS: 81025; 96374; 96375; 99283; J1200; J2930

== ENCOUNTER 2018-06-04 02:29 | Emergency (ER) | payer MEDICARE ==
[2018-06-04 02:29] VITALS: BMI 44.1
[2018-06-04 03:06] VITALS: TEMP 98; O2SAT 98
--- NOTE | 2018-06-04 04:48 | ED PDOC ---
HPI: Psych/Substance Abuse Time Seen by Provider: 06/04/18 03:17 Chief Complaint (Nursing): Anxiety ED Caveat: Acuity of Condition History Per: Patient Additional Complaint(s): 47 year old F with history of anxiety and panic disorder presenting with anxiety. 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 Denies suicidal or homicidal ideation. States that she ran out of her xanax but has her klonopin. Denies drugs or alcohol. States that she worries so much recently that she has chest tightness. Past Medical History Reviewed: Historical Data, Nursing Documentation, Vital Signs Vital Signs: Last Vital Signs Temp 98.0 F 06/04/18 03:03 Pulse 79 06/04/18 03:03 Resp 16 06/04/18 03:03 BP 113/75 06/04/18 03:03 Pulse Ox 98 06/04/18 03:03 - Medical History PMH: Anemia, Anxiety (Panic attacks), Arthritis, Back Problems, Bronchitis, Depression, Gastritis, Gall Bladder Disease, GERD, Chronic Pain Denies: Asthma, CAD, Diabetes, HTN, Hyperlipidemia - Surgical History Surgical History: Cholecystectomy, - Family History Family History: States: Unknown Family Hx - Immunization History Hx Influenza Vaccination: No - Home Medications Home Medications: Ambulatory Orders Medication Instructions Recorded Naproxen [Naprosyn Tab] 1 tab PO Q8 PRN #21 tab 05/29/16 Cephalexin [cephalexin] 500 mg PO BID #14 cap 11/25/16 Ibuprofen [Motrin] 600 mg PO Q6 #20 tab 11/25/16 Cyclobenzaprine [Cyclobenzaprine 10 mg PO Q8H PRN #2 tab 12/14/16 HCl] Ibuprofen [Motrin Tab] 800 mg PO ONCE #1 tab 12/14/16 Albuterol HFA [Ventolin HFA 90 1 puff IH ASDIR #1 unit 04/19/17 mcg/actuation (8 g)] Azithromycin [Zithromax] 250 mg PO DAILY #6 tab 04/19/17 Benzonatate 200 mg PO TID PRN #20 capsule 04/19/17 Naproxen [Naprosyn] 500 mg PO BID #20 tab 04/19/17 Amoxicillin [Amoxil 500 mg Cap] 500 mg PO TID #30 cap 05/05/17 Meloxicam [Mobic] 7.5 mg PO DAILY PRN #14 tab 05/05/17 Ofloxacin Otic 0.3% [Floxin 0.3% 10 drop DAILY #1 bottle 05/05/17 Otic Soln] Ciprofloxacin/Hydrocortisone 3 drop OS BID 7 Days #1 drops.susp 11/01/17 [Cipro Hc Otic Suspension] Loratadine [Claritin] 10 mg PO DAILY PRN #10 tab 11/01/17 Ibuprofen [Motrin Tab] 800 mg PO Q8 PRN #20 tab 01/12/18 Esomeprazole Magnesium [Nexium] 20 mg PO DAILY #30 capsule.dr 02/25/18 Famotidine [Pepcid] 20 mg PO DAILY #14 tab 02/25/18 Ferrous Sulfate 325 mg PO DAILY #14 tablet 02/26/18 Acetaminophen [Tylenol 325mg tab] 650 mg PO Q6 PRN 7 Days tab 04/07/18 Albuterol 0.083% [Albuterol 0.083% 3 ml IH Q6 PRN 7 Days neb 04/07/18 Inhal [place] (2.5 mg/3 ml) UD] Ibuprofen [Motrin Tab] 600 mg PO Q6 PRN 7 Days tab 04/07/18 Nebulizer Accessories [Adult 1 each MC ONCE PRN #1 each 04/07/18 Aerosol Mask] Nebulizer [Aeroeclipse II] 1 each MC ONCE PRN #1 each 04/07/18 Oseltamivir Cap [Tamiflu] 75 mg PO BID 5 Days cap 04/07/18 Famotidine [Pepcid] 20 mg PO BID PRN #10 tab 05/07/18 predniSONE [Prednisone] 40 mg PO DAILY #8 tab 05/07/18 - Allergies Allergies/Adverse Reactions: Allergies Allergy/AdvReac Type Severity Reaction Status Date / Time latex Allergy RASH Verified 05/07/18 20:24 tramadol Allergy RASH Verified 05/07/18 20:24 [facility] Allergy Mild RASH Uncoded 04/07/18 17:43 Review of Systems ROS Statement: Except As Marked, All Systems Reviewed And Found Negative Psych: Positive for: Anxiety, Depression. Negative for: Suicidal ideation Physical Exam - Reviewed Nursing Documentation Reviewed: Yes Vital Signs Reviewed: Yes - Physical Exam Appears: Positive for: Well, Non-toxic, No Acute Distress Head Exam: Positive for: ATRAUMATIC, NORMAL INSPECTION, NORMOCEPHALIC Skin: Positive for: Normal Color, Warm, DRY Eye Exam: Positive for: EOMI, Normal appearance, PERRL ENT: Positive for: Normal ENT Inspection Neck: Positive for: Normal, Painless ROM Cardiovascular/Chest: Positive for: Regular Rate, Rhythm Respiratory: Positive for: CNT, Normal Breath Sounds Gastrointestinal/Abdominal: Positive for: Normal Exam, Soft Back: Positive for: Normal Inspection Extremity: Positive for: Normal ROM Neurological/Psych: Positive for: Awake, Alert, Mood/Affect (Anxious). Negative for: Motor/Sensory Deficits - ECG ECG Rhythm: Positive for: Normal QRS, Normal ST Segment, Sinus Rhythm Rate: 81 O2 Sat by Pulse Oximetry: 98 Medical Decision Making Medical Decision Makin47 year old F presenting with anxiety --Anxious appearing but otherwise well appearing with stable vitals --EKG is nonischemic --Will give dose of anxiolytic and re-eval --Patient does not pose a risk to herself or others at this time 630 --Patient feeling much better, no longer having anxiety --Advised patient to followup with her psychiatrist Disposition - Clinical Impression Clinical Impression: Anxiety - Patient ED Disposition Is Patient to be Admitted: No - Disposition Referrals: [facility] [Outside] Disposition: Routine/Home Disposition Time: 06:30 Condition: IMPROVED Instructions: Anxiety, Adult (DC) Forms: [employer] (Azeri)
[2018-06-04 04:49] VITALS: PULSE 81
[2018-06-04 07:06] VITALS: BP 119/64; RESP 18
--- NOTE | 2018-06-04 17:26 | CARD ---
APPROVED REPORT Date of service: 06/04/2018 EKG Measurement Heart [id number] <Conclusion> Normal sinus rhythm Normal ECG
== END 2018-06-04 06:32 | disposition home or self-care (01) ==
LOC: H.ER 02:29
DX: F41.9 Anxiety disorder, unspecified (principal); Z86.59 Personal history of other mental and behavioral disorders; F41.0 Panic disorder [episodic paroxysmal anxiety]